=== PATIENT | male | born 1990 | race Caucasian/White ===

== ENCOUNTER → 2019-08-16 09:37 | Outpatient (CLI) | payer OTHER, SELFPAY ==
[2019-08-16 11:24] LABS: ALB/GLOB Ratio 0.9 RATIO (0.9-2.4); AST(SGOT) 27 U/L (15-37); Alanine Aminotransfer ALT/SGPT 43 U/L (16-61); Albumin, Serum 3.6 g/dL (3.2-5.0); Alkaline Phosphatase 126 U/L (45-117); Anion Gap 7 (5-15); BUN 8 mg/dL (7-18); BUN/Creat Ratio 6.9 RATIO (10-20); Chloride 107 mmol/L (98-107); Creatinine, Serum 1.16 mg/dL (0.70-1.30); EST Glomerular Filtration Rate 79 mL/min (>60); Est Glom Filt Rate - Afr Amer 96 mL/min (>60); Globulin 3.9 g/dL (2.2-4.2); Glucose 96 mg/dL (74-106); Protein, Total 7.5 g/dL (6.4-8.2); Sodium Level 138 mmol/L (136-145); Thyroid Stim Hormone (TSH) 2.42 uIU/mL (0.358-3.74)
== END ==
PROVIDERS: Referring Provider Registered Nurse; Visit Provider Registered Nurse
DX: F31.9 Bipolar disorder, unspecified (principal); Z79.899 Other long term (current) drug therapy
CPT/HCPCS: 36415; 80053; 80178; 84443

== ENCOUNTER → 2021-01-30 14:32 | Outpatient (CLI) | payer OTHER, SELFPAY ==
[2021-01-30 17:50] LABS: AST(SGOT) 50 U/L (15-37); Alanine Aminotransfer ALT/SGPT 124 U/L (16-61); Alkaline Phosphatase 127 U/L (45-117); Anion Gap 8 (5-15); BUN 5 mg/dL (7-18); BUN/Creat Ratio 3.7 RATIO (10-20); Calcium,Total 9.5 mg/dL (8.5-10.1); Chloride 108 mmol/L (98-107); Creatinine, Serum 1.34 mg/dL (0.70-1.30); EST Glomerular Filtration Rate 67 mL/min (>60); Est Glom Filt Rate - Afr Amer 81 mL/min (>60); Globulin 4.1 g/dL (2.2-4.2); Glucose 91 mg/dL (74-106); Potassium 3.4 mmol/L (3.5-5.1); Protein, Total 8.1 g/dL (6.4-8.2); Sodium Level 137 mmol/L (136-145); Thyroid Stim Hormone (TSH) 2.42 uIU/mL (0.358-3.74)
== END ==
PROVIDERS: Referring Provider Registered Nurse; Visit Provider Registered Nurse
DX: F31.9 Bipolar disorder, unspecified (principal); Z79.899 Other long term (current) drug therapy
CPT/HCPCS: 36415; 80053; 80178; 84443

== ENCOUNTER → 2021-05-03 09:57 | Outpatient (CLI) | payer OTHER, SELFPAY ==
[2021-05-03 11:32] LABS: ALB/GLOB Ratio 0.9 RATIO (0.9-2.4); AST(SGOT) 32 U/L (15-37); Alanine Aminotransfer ALT/SGPT 86 U/L (16-61); Albumin, Serum 3.7 g/dL (3.2-5.0); Alkaline Phosphatase 113 U/L (45-117); Anion Gap 7 (5-15); BUN 8 mg/dL (7-18); BUN/Creat Ratio 6.7 RATIO (10-20); Calcium,Total 8.9 mg/dL (8.5-10.1); Chloride 109 mmol/L (98-107); EST Glomerular Filtration Rate 76 mL/min (>60); Est Glom Filt Rate - Afr Amer 91 mL/min (>60); Globulin 3.9 g/dL (2.2-4.2); Glucose 96 mg/dL (74-106); Potassium 3.8 mmol/L (3.5-5.1); Protein, Total 7.6 g/dL (6.4-8.2); Sodium Level 137 mmol/L (136-145)
== END ==
PROVIDERS: PCP Nurse Practitioner; Referring Provider Registered Nurse; Visit Provider Registered Nurse
DX: F31.9 Bipolar disorder, unspecified (principal); Z79.899 Other long term (current) drug therapy
CPT/HCPCS: 36415; 80053

== ENCOUNTER 2021-08-23 09:40 | Emergency (ER) | payer MEDICAID, SELFPAY ==
[2021-08-23 09:42] VITALS: BP 138/81; PULSE 124; RESP 18; TEMP 37.1; O2SAT 93; BMI 40.6
[2021-08-23 09:46] VITALS: O2SAT 93
--- NOTE | 2021-08-23 09:56 | RAD_ITS ---
STUDY: X-RAY CHEST REASON FOR EXAM: Male, 31 years old. Cough TECHNIQUE: Single AP portable view of the chest. COMPARISON: None. FINDINGS: EKG electrodes are seen. Focal infiltrate is seen in the lateral peripheral aspect of the right upper lobe as well as in the right suprahilar and infrahilar region. Focal infiltrate is also seen in the left upper lobe. There is no demonstrated pleural abnormality. Normal size heart. Normal mediastinum and hoang. Normal visualized pulmonary arteries. Normal visualized aortic arch and descending thoracic aorta. Normal visualized thoracic spine. Normal visualized ribs, clavicles, and shoulders. There is no demonstrated abnormality of the visualized soft tissue structures of the upper abdomen. RAD/Chest 1 View (Portable) IMPRESSION: Bilateral patchy infiltrates worse in the right hemithorax. Electronically Signed: Alberto Delgadillo MD at 10:45 EST , Service support ,
[2021-08-23] MEDS: Acetaminophen 500 MG Tablet 1000 MG PO (10:14)
[2021-08-23 10:28] LABS: Absolute Lymphocyte Count 0.56 X10^3/uL (0.83-4.51); Absolute Neutrophil Count 2.3 X10^3/uL (2.0-7.7); Eosinophil# 0.01 X10^3/uL; Eosinophils% 0.3 % (0-5); Hemoglobin 13.9 g/dL (13.0-16.5); Lymphocyte # 0.56 X10^3/ul (0.83-4.51); Lymphocyte % 17.6 % (19-41); Mean Corp Hgb Conc 35.6 g/dL (32-36); Mean Corpuscular Hgb 30.5 pg (27.0-32.0); Mean Corpuscular Volume 85.5 fL (80-94); Mean Platelet Vol. 9.4 fl (6.2-12.0); Monocyte# 0.29 X10^3/uL; Monocyte% 9.1 % (0-10); NRBC Flagged by Analyzer 0 % (0-5); Neutrophil # 2.31 X10^3/uL (2.7-7.7); Neutrophil % 72.7 % (47-70); POSITIVE DIFFERENTIAL YES; Platelet Count 130 K/mm3 (150-450); RBC Distribution Width CV 13.1 % (11.6-14.6); RBC Distribution Width SD 40.7 fl (35.1-43.9); Red Blood Count 4.56 M/mm3 (4.6-6.2); White Blood Count 3.2 K/mm3 (4.4-11.0)
[2021-08-23 10:30] LABS: Differential Indicated SCAN CRITERIA MET
[2021-08-23 10:44] LABS: ALB/GLOB Ratio 0.7 RATIO (0.9-2.4); AST(SGOT) 29 U/L (15-37); Alanine Aminotransfer ALT/SGPT 35 U/L (16-61); Albumin, Serum 2.9 g/dL (3.2-5.0); Alkaline Phosphatase 78 U/L (45-117); Anion Gap 12 (5-15); BUN 9 mg/dL (7-18); BUN/Creat Ratio 8.1 RATIO (10-20); Calcium,Total 8.1 mg/dL (8.5-10.1); Chloride 103 mmol/L (98-107); Creatinine, Serum 1.11 mg/dL (0.70-1.30); EST Glomerular Filtration Rate 82 mL/min (>60); Est Glom Filt Rate - Afr Amer 100 mL/min (>60); Estimated Creatinine Clearance 87.81 ml/min; Globulin 3.9 g/dL (2.2-4.2); Glucose 113 mg/dL (74-106); Protein, Total 6.8 g/dL (6.4-8.2); Sodium Level 138 mmol/L (136-145)
[2021-08-23 10:54] LABS: Lactic Acid 1.4 mmol/L (0.4-1.9)
--- NOTE | 2021-08-23 11:22 | EDS_ITS ---
HPI History of Present Illness Chief Complaint: Shortness of Breath Informant: patient Onset/Context/Timing Onset: Days (6) Context: Gradual Onset Timing: Continuous Quality: Aching Location: Generalized Worsened by: Nothing Relieved by: Ibuprofen and Merlyn-Aspen Narrative Narrative: Patient presents with Covid symptoms for the past 6 days. Patient states he was diagnosed with COVID-19 on 08/20/2021. Patient states his symptoms have been getting progressively worse. Patient states he feels lightheaded and aching all over. Patient admits to a cough with some green and white sputum production. Patient admits to subjective fevers but denies any chills. Patient admits to some pain in his chest. Patient states his symptoms have been improving with ibuprofen and Merlyn-Aspen. Patient states nothing makes his symptoms any worse. [facility] Medical History (Updated 08/23/21 @ 11:[address] Romel Patino DO) Bipolar disorder Medical History no medical history Home Medications buspirone 10 mg PO BID 08/23/21 [History Last Taken Unknown] hydroxyzine pamoate 100 mg PO DAILY 08/23/21 [History Last Taken Unknown] lithium carbonate 600 mg PO BID 08/23/21 [History Last Taken Unknown] sertraline 50 mg PO DAILY 08/23/21 [History Last Taken Unknown] topiramate 200 mg PO DAILY 08/23/21 [History Last Taken Unknown] Allergy/AdvReac Type Severity Reaction Status Date / Time No Known Allergies Allergy Verified 08/23/21 10:15 Surgical History no surgical history no surgical history Social History Smoking Status: Current every day smoker tobacco type: cigarettes and smokeless tobacco ROS ROS ED Constitutional Constitutional ED: Reports fever(s) and subjective; Denies chills Eyes Eyes: Denies blurry vision or change in vision ENT ENT ED: Denies rhinorrhea or sore throat Cardiovascular Cardiovascular: Reports chest pain; Denies palpitations Respiratory/Chest Respiratory/Chest: Reports cough and sputum; Denies dyspnea Gastrointestinal Gastrointestinal: Reports nausea and vomiting Genitourinary Genitourinary ED: Denies dysuria or hematuria Musculoskeletal Musculoskeletal: Denies back pain or neck pain Integumentary Denies abscess or rash Neurologic Neurologic: Reports headache(s); Denies weakness Allergic/Immunologic Allergic/Immunologic ED: Denies mouth swelling or urticaria EXAM Physical Exam Const Vital Signs: 08/23/21 09:42 08/23/21 09:46 Temperature 98.7 F Temperature Source Oral Pulse Rate 124 H Respiratory Rate 18 Respiratory Effort Normal Non-Labored Respiratory Depth Normal Respiratory Pattern Normal Blood Pressure 138/81 H Blood Pressure Mean 100 Pulse Ox 93 Oxygen Delivery Method Room Air Room Air Positive well nourished, well developed and unkempt General Appearance ED: unkempt, well developed and NAD HEENT Reports moist mucous membranes Neck supple and no JVD Resp normal respiratory effort Auscultation: diminished lung sounds bilateral lower Cardio regular rate, regular rhythm and no murmurs GI normal to inspection, nondistended, normoactive bowel sounds and non-tender Palpation: soft Extremity normal to inspection General Extremety ED: Negative for edema or tenderness General Extremity: Negative for edema Neuro oriented x3, CN's II-XII intact bilaterally and no sensory deficits noted Sensorium / Orientation: alert Motor Exam: strength 5/5 throughout Psych mental status grossly normal Appearance: unkempt Skin no rashes or lesions noted MDM MDM MDM Narrative Medical decision making narrative: Portable chest x-ray was obtained. There is 1 view. On my interpretation, there are bilateral infiltrates. Bony thorax is normal. There is no cardiomegaly noted. Radiologist also interpreted the x-ray and agrees. CBC shows white blood cell count of 3.2. Platelets are 130. Comprehensive metabolic profile shows a mild hypokalemia 3.0. Patient was given a dose of oral potassium here. Lactate was normal. Patient was advised of his findings. Patient was instructed to drink plenty of fluids. Patient was instructed to follow-up with his primary care physician in 5 to 7 days. Patient understood and was agreeable with the plan. All questions were answered. Lab Data Attestation: I reviewed the patient's lab results. Labs: Laboratory Results - last 24 hr 08/23/21 08/23/21 08/23/21 10:15 10:15 10:15 WBC 3.2 L RBC 4.56 L Hgb 13.9 Hct 39.0 L MCV 85.5 MCH 30.5 MCHC 35.6 RDW Std Deviation 40.7 RDW Coeff of Joanna 13.1 Plt Count 130 L MPV 9.4 Immature Gran % (Auto) 0.300 Neut % (Auto) 72.7 H Lymph % (Auto) 17.6 L [place] % (Auto) 9.1 Eos % (Auto) 0.3 Baso % (Auto) 0.0 Absolute Neuts (auto) 2.3 Absolute Lymphs (auto) 0.56 L Nucleated RBC % 0 Sodium 138 Potassium 3.0 L Chloride 103 Carbon Dioxide 23.0 Anion Gap 12 BUN 9 Creatinine 1.11 Estim Creat Clear Calc 87.81 Est GFR (MDRD) Af Amer 100 Est GFR (MDRD) Non-Af 82 BUN/Creatinine Ratio 8.1 L Glucose 113 H Lactic Acid 1.4 Calcium 8.1 L Total Bilirubin 0.40 AST 29 ALT 35 Alkaline Phosphatase 78 Total Protein 6.8 Albumin 2.9 L Globulin 3.9 Albumin/Globulin Ratio 0.7 L Radiography Chest X-Ray - ED: 1 View, Read by ED Physician, Read by Radiologist, Right Infiltrate and Left Infiltrate Diagnostic Testing: Clinical Impression(s) from Imaging Studies Chest X-Ray 08/23/21 09:56 IMPRESSION: Bilateral patchy infiltrates worse in the right hemithorax. Electronically Signed: Alberto Delgadillo MD at 10:45 EST , Service support , Discharge Plan Triage Chief Complaint: Shortness of Breath ED Provider: Romel Patino Dx/Rx/DC Orders Clinical Impression: Pneumonia due to COVID-19 virus Instructions: Coronavirus Disease 2019 (COVID-19): Caring for Yourself or Others Prescriptions: No Action hydroxyzine pamoate 100 mg capsule 100 mg PO DAILY RF: 0 lithium carbonate 300 mg capsule 600 mg PO BID RF: 0 buspirone 10 mg tablet 10 mg PO BID RF: 0 topiramate 200 mg tablet 200 mg PO DAILY RF: 0 sertraline 50 mg tablet 50 mg PO DAILY RF: 0 Primary Care Provider: Malaika Em NP Referrals: Malaika Em AUTOMOBILE RENTAL CLERK, AUTOMOBILE RENTAL CLERK-C [Primary Care Provider] - 3-5 Days Activity Restrictions/Additional Instructions: Continue to quarantine for the next week. Disposition Disposition: Home, Self Care
[2021-08-23] MEDS: Potassium Chloride Oral Tablet 20 MEQ 40 MEQ PO (11:41)
[2021-08-23 11:48] VITALS: BP 170/89; PULSE 100; RESP 36; TEMP 37.5; O2SAT 93
[2021-08-23 12:24] VITALS: O2SAT 94
[2021-08-27 10:31] LABS: Pathologist Review Reviewed
== END 2021-08-23 12:25 | disposition home or self-care (01) ==
PROVIDERS: Emergency Provider Emergency Medicine; PCP Nurse Practitioner
DX: U07.1 COVID-19 (principal); J12.82 Pneumonia due to coronavirus disease 2019; F31.9 Bipolar disorder, unspecified; F17.210 Nicotine dependence, cigarettes, uncomplicated; E87.6 Hypokalemia; Z79.899 Other long term (current) drug therapy
CPT/HCPCS: 71045; 80053; 83605; 85025; 96360; 99285; J7040; A4216

== ENCOUNTER 2021-08-25 05:56 | Inpatient (IN) | payer MEDICAID, SELFPAY ==
[2021-08-25] VITALS (10 sets, daily range): BP systolic 119–163; BP diastolic 62–93; PULSE 89–108; RESP 16–23; TEMP 36.9–37.2; O2SAT 83–97; BMI 43.4; BMI 38.9
--- NOTE | 2021-08-25 06:06 | EKG12_ITS ---
Test Reason : SOB Blood Pressure : / mmHG Vent. Rate : 108 BPM Atrial Rate : 108 BPM P-R Int : 172 ms QRS Dur : 106 ms QT Int : 454 ms P-R-T Axes : 012 -14 018 degrees QTc Int : 608 ms Sinus tachycardia Prolonged QT Abnormal ECG Confirmed by EMANUEL MUNGUIA, WENDY ([id number]), writer editor DENISE TORRES ([id number]) on 08/27/2021 10:18:09 AM Referred By: TL Confirmed By:WENDY CASTELLANOS MD
--- NOTE | 2021-08-25 06:13 | ED.VIS.DYS ---
HPI <Dr. Keo Glasgow DO - Last Filed: 08/26/21 01:06> History of Present Illness Chief Complaint: Shortness of Breath Informant: patient Narrative Narrative: Presents by EMS worsening dyspnea over the past day. Seen in the ED 2 days ago reports Covid pneumonia. States since then symptoms worsening. Initially diagnosed 6 days ago when he went to long-term, he was released secondary to being diagnosed. States symptoms started 2 weeks ago. Fevers headache cough vomiting diarrhea. He states last smell, altered taste. Nonvaccinated. Denies sick contacts with Covid. No previous infections. Denies asthma or COPD history. Tobacco history. Denies chest or abdominal pain. EMS arrival pulse ox 81% on room air, he was brought in on 5 L of oxygen. He is not a diabetic. States feels fatigued. Symptoms worse with exertion. Reviewing records seen 2 days ago chest x-ray bilateral pneumonia consistent with Covid. Labs white count of 3 potassium of 3, lactic acid 1.4. She discharged with an inhaler. Patient did not have a documented test from 2 days ago. He states he does not have the results from the long-term. PFSH <Dr. Keo Glasgow, DO - Last Filed: 08/26/21 01:06> [facility] Medical History Anxiety and depression Bipolar disorder Home Medications buspirone 10 mg PO BID 08/23/21 [History Last Taken Unknown] hydroxyzine pamoate 100 mg PO DAILY 08/23/21 [History Last Taken Unknown] lithium carbonate 600 mg PO BID 08/23/21 [History Last Taken Unknown] sertraline 50 mg PO DAILY 08/23/21 [History Last Taken Unknown] topiramate 200 mg PO DAILY 08/23/21 [History Last Taken Unknown] Allergy/AdvReac Type Severity Reaction Status Date / Time No Known Allergies Allergy Verified 08/23/21 10:15 Family History (Updated 08/25/21 @ 15:[address] Guera Viecnte MD) Mother Mental health disorder Father Mental health disorder Social History (Updated 08/25/21 @ 15:[address] Guera Vicente MD) Smoking Status: Current every day smoker tobacco type: cigarettes and smokeless tobacco substance use type: does not use ROS <Dr. Keo Glasgow DO - Last Filed: 08/26/21 01:06> ROS ED Constitutional Constitutional ED: Reports fever(s); Denies chills or sweats Eyes Eyes: Denies change in vision ENT ENT ED: Denies dysphagia or sore throat Cardiovascular Cardiovascular: Denies chest pain, leg edema, palpitations or racing heartbeat Respiratory/Chest Respiratory/Chest: Reports cough, dyspnea and dyspnea on exertion Gastrointestinal Gastrointestinal: Reports diarrhea and vomiting; Denies abdominal pain or nausea Genitourinary Genitourinary ED: Denies dysuria, hematuria or urinary frequency Musculoskeletal Musculoskeletal: Denies back pain, extremity pain or neck pain Integumentary Denies rash or wounds Neurologic Neurologic: Reports headache(s); Denies paresthesias or weakness EXAM <Dr. Keo Glasgow, DO - Last Filed: 08/26/21 01:06> Physical Exam Const Vital Signs: 08/25/21 05:57 08/25/21 06:01 08/25/21 06:23 Temperature 98.9 F 98.9 F Temperature Source Temporal Temporal Pulse Rate 103 H 101 H Respiratory Rate 23 H 23 H Respiratory Effort Short of Breath Labored Respiratory Depth Normal Respiratory Pattern Normal Blood Pressure 123/85 H 123/85 H Blood Pressure Mean 97 97 Pulse Ox 83 97 Oxygen Delivery Method Room Air Room Air Room Air Oxygen Flow Rate (L/min) 4 08/25/21 08:25 Temperature Temperature Source Pulse Rate 108 H Respiratory Rate 21 H Respiratory Effort Respiratory Depth Respiratory Pattern Blood Pressure 150/79 H Blood Pressure Mean 102 Pulse Ox 92 Oxygen Delivery Method Nasal Cannula Oxygen Flow Rate (L/min) 4 Positive well nourished, well developed and obese Constitutional Narrative: 4 L nasal cannula at 95%. General Appearance ED: well developed and NAD Nutritional Appearance: obese HEENT Reports moist mucous membranes normocephalic and atraumatic Eyes PERRL, EOMs intact bilaterally and conjunctivae normal General Eye ED: Yes normal appearance of both eyes Neck no lymphadenopathy and supple General: Negative for tenderness Chest Wall Chest: Negative for tenderness Resp normal respiratory effort and normal air movement Effort and Inspection: symmetric chest movement; Negative for respiratory distress Cardio regular rate, regular rhythm and no murmurs Peripheral Pulses: pulses 2+ throughout GI normal to inspection, nondistended, normoactive bowel sounds and non-tender Palpation: Negative for guarding or rebound tenderness present Back/Spine no CVA tenderness and no thoracic nor lumbar tenderness Extremity normal to inspection General Extremety ED: Negative for edema or tenderness General Extremity: Negative for edema Neuro oriented x3 and no sensory deficits noted Sensorium / Orientation: awake and alert Skin no rashes or lesions noted and no wounds <Dr. Dae Ellis, DO - Last Filed: 08/25/21 09:22> Physical Exam Const Vital Signs: 08/25/21 05:57 08/25/21 06:01 08/25/21 06:23 Temperature 98.9 F 98.9 F Temperature Source Temporal Temporal Pulse Rate 103 H 101 H Respiratory Rate 23 H 23 H Respiratory Effort Short of Breath Labored Respiratory Depth Normal Respiratory Pattern Normal Blood Pressure 123/85 H 123/85 H Blood Pressure Mean 97 97 Pulse Ox 83 97 Oxygen Delivery Method Room Air Room Air Room Air Oxygen Flow Rate (L/min) 4 08/25/21 08:25 Temperature Temperature Source Pulse Rate 108 H Respiratory Rate 21 H Respiratory Effort Respiratory Depth Respiratory Pattern Blood Pressure 150/79 H Blood Pressure Mean 102 Pulse Ox 92 Oxygen Delivery Method Nasal Cannula Oxygen Flow Rate (L/min) 4 [facility] <Dr. Keo Glasgow, DO - Last Filed: 08/26/21 01:06> [facility] MDM Narrative Medical decision making narrative: Patient afebrile slight tachycardia 101 respiratory rate 23. Pulse ox on room air 83, 4 L noted 97%. Sepsis labs were ordered. Will obtain Covid testing due to no documentation in the system and no documentation from the patient. He started on dexamethasone. Reports currently 2 weeks into symptoms, he is not a candidate for antiviral treatment at this time. Will obtain a D-dimer for further evaluation likely will need CT scan to rule out PE due to hypoxia worsened over the past day. Labs troponin negative. Potassium 2.9. D-dimer elevated 0.95. Chest x-ray consistent with Covid pneumonia. Rapid Covid returned negative, will send a PCR for further evaluation. CTA chest ordered and pending. Patient signed out to oncoming physician. Reported by nursing patient did ambulate on 3 L oxygen dropped down to 86%. Lab Data Attestation: I reviewed the patient's lab results. Labs: Laboratory Results - last 24 hr 08/25/21 08/25/21 08/25/21 06:04 06:04 06:04 WBC 6.3 RBC 4.74 Hgb 13.9 Hct 41.5 MCV 87.6 MCH 29.3 MCHC 33.5 D RDW Std Deviation 42.5 RDW Coeff of Joanna 13.2 Plt Count 169 MPV 9.4 Immature Gran % (Auto) 0.800 Neut % (Auto) 78.5 H Lymph % (Auto) 16.1 L [place] % (Auto) 4.4 Eos % (Auto) 0.0 Baso % (Auto) 0.2 Absolute Neuts (auto) 5.0 Absolute Lymphs (auto) 1.02 Nucleated RBC % 0 D-Dimer Quant (PE/DVT) 0.95 H* Sodium 141 Potassium 2.9 L Chloride 104 Carbon Dioxide 30.0 Anion Gap 7 BUN 7 Creatinine 0.99 Estim Creat Clear Calc 98.46 Est GFR (MDRD) Af Amer 114 Est GFR (MDRD) Non-Af 94 BUN/Creatinine Ratio 7.1 L Glucose 105 Lactic Acid Calcium 8.1 L Magnesium Total Bilirubin 0.30 AST 27 ALT 28 Alkaline Phosphatase 74 Troponin I High Sens 4 C-React Prot Ext Range 152.00 H Total Protein 7.0 Albumin 2.9 L Globulin 4.1 Albumin/Globulin Ratio 0.7 L COVID-19 (TIFFANIE) 08/25/21 08/25/21 08/25/21 06:04 06:04 07:13 WBC RBC Hgb Hct MCV MCH MCHC RDW Std Deviation RDW Coeff of Joanna Plt Count MPV Immature Gran % (Auto) Neut % (Auto) Lymph % (Auto) [place] % (Auto) Eos % (Auto) Baso % (Auto) Absolute Neuts (auto) Absolute Lymphs (auto) Nucleated RBC % D-Dimer Quant (PE/DVT) Sodium Potassium Chloride Carbon Dioxide Anion Gap BUN Creatinine Estim Creat Clear Calc Est GFR (MDRD) Af Amer Est GFR (MDRD) Non-Af BUN/Creatinine Ratio Glucose Lactic Acid 1.8 Calcium Magnesium 2.4 Total Bilirubin AST ALT Alkaline Phosphatase Troponin I High Sens C-React Prot Ext Range Total Protein Albumin Globulin Albumin/Globulin Ratio COVID-19 (TIFFANIE) Detected Radiography Diagnostic Testing: Clinical Impression(s) from Imaging Studies Chest X-Ray 08/25/21 06:25 IMPRESSION: Ill-defined subpleural groundglass opacities are seen more prominent in the lung bases , may represent atypical pneumonia or viral pneumonia (COVID-19 ?). Electronically Signed: Analilia Dubois MD at 6:42 EST Tel , Service support , Chest CTA 08/25/21 06:51 IMPRESSION: No demonstrated pulmonary embolism or arterial dissection. Ill-defined subpleural groundglass opacities are seen more prominent in the lung bases , consistent with atypical pneumonia or viral pneumonia (COVID-19 pneumonia). Electronically Signed: Analilia Dubois MD at 7:41 EST Tel , Service support , <Dr. Dae Ellis, DO - Last Filed: 08/25/21 09:22> [facility] MDM Narrative Medical decision making narrative: Patient signed out to me at 0700 hrs. for follow-up on CTA of the chest as the patient had elevated D-dimer and presumed Covid positive H had a positive outpatient test. CT of the chest does not identify any PE or dissection. There is what appears to be Covid pneumonitis. Patient's O2 sats did drop on 3 L and he was bumped up to 4 L and is currently maintaining an O2 sat of 92%. He was previously given dexamethasone and potassium. Covid PCR is pending. Discussed with hospitalist for admission. Follow-up with a Covid PCR will be done in patient. Lab Data Labs: Laboratory Results - last 24 hr 08/25/21 08/25/21 08/25/21 06:04 06:04 06:04 WBC 6.3 RBC 4.74 Hgb 13.9 Hct 41.5 MCV 87.6 MCH 29.3 MCHC 33.5 D RDW Std Deviation 42.5 RDW Coeff of Joanna 13.2 Plt Count 169 MPV 9.4 Immature Gran % (Auto) 0.800 Neut % (Auto) 78.5 H Lymph % (Auto) 16.1 L [place] % (Auto) 4.4 Eos % (Auto) 0.0 Baso % (Auto) 0.2 Absolute Neuts (auto) 5.0 Absolute Lymphs (auto) 1.02 Nucleated RBC % 0 D-Dimer Quant (PE/DVT) 0.95 H* Sodium 141 Potassium 2.9 L Chloride 104 Carbon Dioxide 30.0 Anion Gap 7 BUN 7 Creatinine 0.99 Estim Creat Clear Calc 98.46 Est GFR (MDRD) Af Amer 114 Est GFR (MDRD) Non-Af 94 BUN/Creatinine Ratio 7.1 L Glucose 105 Lactic Acid Calcium 8.1 L Magnesium Total Bilirubin 0.30 AST 27 ALT 28 Alkaline Phosphatase 74 Troponin I High Sens 4 C-React Prot Ext Range 152.00 H Total Protein 7.0 Albumin 2.9 L Globulin 4.1 Albumin/Globulin Ratio 0.7 L COVID-19 (TIFFANIE) 08/25/21 08/25/21 08/25/21 06:04 06:04 07:13 WBC RBC Hgb Hct MCV MCH MCHC RDW Std Deviation RDW Coeff of Joanna Plt Count MPV Immature Gran % (Auto) Neut % (Auto) Lymph % (Auto) [place] % (Auto) Eos % (Auto) Baso % (Auto) Absolute Neuts (auto) Absolute Lymphs (auto) Nucleated RBC % D-Dimer Quant (PE/DVT) Sodium Potassium Chloride Carbon Dioxide Anion Gap BUN Creatinine Estim Creat Clear Calc Est GFR (MDRD) Af Amer Est GFR (MDRD) Non-Af BUN/Creatinine Ratio Glucose Lactic Acid 1.8 Calcium Magnesium 2.4 Total Bilirubin AST ALT Alkaline Phosphatase Troponin I High Sens C-React Prot Ext Range Total Protein Albumin Globulin Albumin/Globulin Ratio COVID-19 (TIFFANIE) Detected Radiography Diagnostic Testing: Clinical Impression(s) from Imaging Studies Chest X-Ray 08/25/21 06:25 IMPRESSION: Ill-defined subpleural groundglass opacities are seen more prominent in the lung bases , may represent atypical pneumonia or viral pneumonia (COVID-19 ?). Electronically Signed: Analilia Dubois MD at 6:42 EST Tel , Service support , Chest CTA 08/25/21 06:51 IMPRESSION: No demonstrated pulmonary embolism or arterial dissection. Ill-defined subpleural groundglass opacities are seen more prominent in the lung bases , consistent with atypical pneumonia or viral pneumonia (COVID-19 pneumonia). Electronically Signed: Analilia Dubois MD at 7:41 EST Tel , Service support , Discharge Plan Triage Chief Complaint: Shortness of Breath ED Provider: Keo Glasgow Dx/Rx/DC Orders Clinical Impression: Pneumonia due to COVID-19 virus, Hypoxia, Acute hypokalemia Primary Care Provider: Malaika Em CONTINUOUS WAVE OPERATOR Disposition Discharge Date/Time: 08/25/21 14:02
--- NOTE | 2021-08-25 06:25 | RAD_ITS ---
STUDY: X-RAY CHEST REASON FOR EXAM: Male, 31 years old. cough TECHNIQUE: Single AP portable view of the chest. COMPARISON: None. FINDINGS: Ill-defined subpleural groundglass opacities are seen more prominent in the lung bases , may represent atypical pneumonia or viral pneumonia (COVID-19 ?). There is no demonstrated pleural abnormality. Normal size heart. Normal mediastinum and hoang. Normal visualized pulmonary arteries. Normal visualized aortic arch and descending thoracic aorta. Normal visualized thoracic spine. Normal visualized ribs, clavicles, and shoulders. There is no demonstrated abnormality of the visualized soft tissue structures of the upper abdomen. RAD/Chest 1 View (Portable) IMPRESSION: Ill-defined subpleural groundglass opacities are seen more prominent in the lung bases , may represent atypical pneumonia or viral pneumonia (COVID-19 ?). Electronically Signed: Analilia Dubois MD at 6:42 EST Tel , Service support ,
[2021-08-25 06:30] LABS: Absolute Lymphocyte Count 1.02 X10^3/uL (0.83-4.51); Basophil# 0.01 X10^3/uL; Basophil% 0.2 % (0-1); Hematocrit 41.5 % (40-54); Hemoglobin 13.9 g/dL (13.0-16.5); Lymphocyte # 1.02 X10^3/ul (0.83-4.51); Lymphocyte % 16.1 % (19-41); Mean Corp Hgb Conc 33.5 g/dL (32-36); Mean Corpuscular Hgb 29.3 pg (27.0-32.0); Mean Corpuscular Volume 87.6 fL (80-94); Mean Platelet Vol. 9.4 fl (6.2-12.0); Monocyte# 0.28 X10^3/uL; Monocyte% 4.4 % (0-10); NRBC Flagged by Analyzer 0 % (0-5); Neutrophil # 4.96 X10^3/uL (2.7-7.7); Neutrophil % 78.5 % (47-70); Platelet Count 169 K/mm3 (150-450); RBC Distribution Width CV 13.2 % (11.6-14.6); RBC Distribution Width SD 42.5 fl (35.1-43.9); Red Blood Count 4.74 M/mm3 (4.6-6.2); White Blood Count 6.3 K/mm3 (4.4-11.0)
--- NOTE | 2021-08-25 06:37 | ED.RN ---
Patient 96% 2L NC at rest. Patient unable to walk more than 8 steps without losing his breath and began to sway, before sitting down. Increased O2 from 2Lto 3 L NC and still dropped to 86%. Took him more than 3 minutes to recover on 3L NC and went to 96% on 3L. O2 decreased to 2 L NC for resting pulse ox at 95% at this time.
--- NOTE | 2021-08-25 06:42 | NURSING ---
NO OLD EKGS
[2021-08-25 06:47] LABS: ALB/GLOB Ratio 0.7 RATIO (0.9-2.4); AST(SGOT) 27 U/L (15-37); Alanine Aminotransfer ALT/SGPT 28 U/L (16-61); Albumin, Serum 2.9 g/dL (3.2-5.0); Alkaline Phosphatase 74 U/L (45-117); Anion Gap 7 (5-15); BUN 7 mg/dL (7-18); BUN/Creat Ratio 7.1 RATIO (10-20); Calcium,Total 8.1 mg/dL (8.5-10.1); Chloride 104 mmol/L (98-107); Creatinine, Serum 0.99 mg/dL (0.70-1.30); EST Glomerular Filtration Rate 94 mL/min (>60); Est Glom Filt Rate - Afr Amer 114 mL/min (>60); Estimated Creatinine Clearance 98.46 ml/min; Globulin 4.1 g/dL (2.2-4.2); Glucose 105 mg/dL (74-106); Potassium 2.9 mmol/L (3.5-5.1); Sodium Level 141 mmol/L (136-145); Troponin-I HS 4 pg/mL (3.0-78.0)
[2021-08-25 06:48] LABS: D-Dimer Quantitative (DVT/PE) 0.95 FEU/ug/m (0.27-0.49)
[2021-08-25 06:51] LABS: Lactic Acid 1.8 mmol/L (0.4-1.9)
--- NOTE | 2021-08-25 06:51 | CT_ITS ---
STUDY: CTA CHEST REASON FOR EXAM: Male, 31 years old. hypoxia -- covid, pneumonia RADIATION DOSAGE (If Supplied By Facility): CTDIvol = ( 15.04 ) mGy, DLP = ( 484.45 ) mGycm TECHNIQUE: The examination was performed with the intravenous administration of IV 100mL Isovue-370. Post-processing of the angiographic images was performed, with multiplanar reformation and 3D reconstruction. Individualized dose optimization techniques were used for this CT. COMPARISON: None. FINDINGS: Normal enhancement of the main pulmonary artery and right and left pulmonary arteries. Normal enhancement of the bilateral peripheral pulmonary arteries. There is no demonstrated pulmonary embolism. Normal thoracic aorta and visualized great vessels. There is no demonstrated aortic dissection. Normal heart and pericardium. Normal mediastinum. Normal hilar regions. Normal visualized trachea and bronchi. The lungs are well expanded. Ill-defined subpleural groundglass opacities are seen more prominent in the lung bases , consistent with atypical pneumonia or viral pneumonia (COVID-19 pneumonia). Normal pleura. Normal chest wall structures. Normal osseous structures. Normal visualized upper abdomen. CT/CTA Chest W/WO Contrast IMPRESSION: No demonstrated pulmonary embolism or arterial dissection. Ill-defined subpleural groundglass opacities are seen more prominent in the lung bases , consistent with atypical pneumonia or viral pneumonia (COVID-19 pneumonia). Electronically Signed: Analilia Dubois MD at 7:41 EST Tel , Service support ,
[2021-08-25] MEDS: Potassium Chloride Oral Tablet 20 MEQ 40 MEQ PO ×2 (06:59→16:40)
--- NOTE | 2021-08-25 09:12 | NURSING ---
DR CLAIRE INFANTE
--- NOTE | 2021-08-25 09:21 | PCM.HP.STD ---
HPI - General General Date of Admission: 08/25/21 Date of Service: 08/25/21 Chief Complaint: Shortness of breath ongoing for 1 week HPI Narrative EDWARD SILVEIRA, is a 31 M who presents with the above. Patient was supposed to going to long term and was tested positive for Covid and hence did not go to long term. He stated that he is on probation. He has been progressively short of breath. He is unvaccinated. Denies any fever or chills. Admits to loss of smell or taste. Denied any diarrhea. Vitals in the ED were stable except patient was satting 83% on room air. He improved to 93% on 4 L of oxygen. His blood work for significant for elevated D-dimer. Potassium of 2.9 by magnesium is 2.4. Chest x-ray and CT of the chest showed bilateral infiltrates. No PE [facility] Medical History (Updated 08/25/21 @ 15:[address] Guera Vicente MD) Anxiety and depression Bipolar disorder Home Medications buspirone 10 mg PO BID 08/23/21 [History Last Taken Unknown] hydroxyzine pamoate 100 mg PO DAILY 08/23/21 [History Last Taken Unknown] lithium carbonate 600 mg PO BID 08/23/21 [History Last Taken Unknown] sertraline 50 mg PO DAILY 08/23/21 [History Last Taken Unknown] topiramate 200 mg PO DAILY 08/23/21 [History Last Taken Unknown] Allergy/AdvReac Type Severity Reaction Status Date / Time No Known Allergies Allergy Verified 08/23/21 10:15 Family History (Updated 08/25/21 @ 15:[address] Guera Vicente MD) Mother Mental health disorder Father Mental health disorder Surgical History no surgical history no surgical history Social History (Updated 08/25/21 @ 15:[address] Guera Vicente MD) Smoking Status: Current every day smoker tobacco type: cigarettes and smokeless tobacco substance use type: does not use ROS ROS Narrative Constitutional: Reports: Malaise, Weakness, Fatigue. Denies: Anorexia, Chills, Fever, Night Sweats, Weight Change Eyes: Denies: Blurred vision, Cataracts, Conjunctivae Inflammation, Pain, Redness, Vision Change HEENT: Denies: Difficulty Hearing, Difficulty Swallowing, Head Aches, Hearing Changes, Sinus Congestion, Sinus Drainage Cardiovascular: Denies: Chest Pain, Orthopnea, Palpitations Respiratory: Admits to Cough, Shortness of breath at rest, Sputum production Gastrointestinal: Denies: Abdominal Pain, Nausea, Vomiting Genitourinary: Denies: Dysuria Musculoskeletal: Denies: Joint Pain, Joint stiffness, Joint swelling, Joint Tenderness Skin: Denies: Rash, Wounds Neurological: Denies: Numbness, Tingling, Focal weakness Vital Signs Vital Signs Vital Signs: 08/25/21 05:57 08/25/21 06:01 08/25/21 06:23 Temperature 98.9 F 98.9 F Temperature Source Temporal Temporal Pulse Rate 103 H 101 H Respiratory Rate 23 H 23 H Respiratory Effort Short of Breath Labored Respiratory Depth Normal Respiratory Pattern Normal Blood Pressure 123/85 H 123/85 H Blood Pressure Mean 97 97 Pulse Ox 83 97 Oxygen Delivery Method Room Air Room Air Room Air Oxygen Flow Rate (L/min) 4 08/25/21 08:25 Temperature Temperature Source Pulse Rate 108 H Respiratory Rate 21 H Respiratory Effort Respiratory Depth Respiratory Pattern Blood Pressure 150/79 H Blood Pressure Mean 102 Pulse Ox 92 Oxygen Delivery Method Nasal Cannula Oxygen Flow Rate (L/min) 4 Weight Weight: 122.3 kg Body Mass Index (BMI) 43.4 Results Lab / Micro Data Result Diagrams: 08/25/21 06:04 08/25/21 06:04 Labs: Laboratory Results - last 24 hr 08/25/21 06:04: WBC 6.3, RBC 4.74, Hgb 13.9, Hct 41.5, MCV 87.6, MCH 29.3, MCHC 33.5 D, RDW Std Deviation 42.5, RDW Coeff of Joanna 13.2, Plt Count 169, MPV 9.4, Immature Gran % (Auto) 0.800, Neut % (Auto) 78.5 H, Lymph % (Auto) 16.1 L, [place] % (Auto) 4.4, Eos % (Auto) 0.0, Baso % (Auto) 0.2, Absolute Neuts (auto) 5.0, Absolute Lymphs (auto) 1.02, Nucleated RBC % 0 08/25/21 06:04: D-Dimer Quant (PE/DVT) 0.95 H* 08/25/21 06:04: Sodium 141, Potassium 2.9 L, Chloride 104, Carbon Dioxide 30.0, Anion Gap 7, BUN 7, Creatinine 0.99, Estim Creat Clear Calc 98.46, Est GFR (MDRD) Af Amer 114, Est GFR (MDRD) Non-Af 94, BUN/Creatinine Ratio 7.1 L, Glucose 105, Calcium 8.1 L, Total Bilirubin 0.30, AST 27, ALT 28, Alkaline Phosphatase 74, Troponin I High Sens 4, C-React Prot Ext Range 152.00 H, Total Protein 7.0, Albumin 2.9 L, Globulin 4.1, Albumin/Globulin Ratio 0.7 L 08/25/21 06:04: Lactic Acid 1.8 Micro: Microbiology 08/25/21 06:12 Nasal Secretion SARS-CoV-2 Antigen (Rapid) - Final Radiology Impression Chest X-Ray 08/25/21 06:25 IMPRESSION: Ill-defined subpleural groundglass opacities are seen more prominent in the lung bases , may represent atypical pneumonia or viral pneumonia (COVID-19 ?). Electronically Signed: Analilia Dubois MD at 6:42 EST Tel , Service support , Chest CTA 08/25/21 06:51 IMPRESSION: No demonstrated pulmonary embolism or arterial dissection. Ill-defined subpleural groundglass opacities are seen more prominent in the lung bases , consistent with atypical pneumonia or viral pneumonia (COVID-19 pneumonia). Electronically Signed: Analilia Dubois MD at 7:41 EST Tel , Service support , Assessment & Plan Assessment/Plan (1) Acute respiratory failure with hypoxia: (2) Pneumonia due to COVID-19 virus: (3) Acute hypokalemia: PLAN: 1. Acute hypoxic respiratory failure secondary to acute COVID-19 pneumonia Patient is on 3 to 4 L of oxygen Patient is unvaccinated; symptoms started about a week ago Chest x-ray and CT of the chest shows bilateral infiltrates, no PE Would continue on dexamethasone, start remdesivir Encourage use of incentive spirometer 2. Hypokalemia, replaced, recheck in a.m. 3. Obesity, BMI 38.9 4. Bipolar disorder/anxiety/depression, continue chronic medications Charges/Coding Visit Charges Inpatient E&M: 83241 Subs Hosp L2
--- NOTE | 2021-08-25 09:22 | NURSING ---
MED SURG [facility], RESPITATORY FAILURE
[2021-08-25 09:37] LABS: Magnesium 2.4 mg/dL (1.6-2.6)
[2021-08-25] MEDS: Sertraline 50 MG Tablet PO (15:01)
[2021-08-25] MEDS: Topiramate 200 MG Tablet PO (15:01)
[2021-08-25] MEDS: Lithium Carbonate 300mg Capsule 600 MG PO ×2 (15:01→22:52)
[2021-08-25] MEDS: guaiFENesin 10 ML UDC (200MG/10ML) 20 ML PO ×2 (16:40→22:51)
[2021-08-25] MEDS: Acetaminophen 325 MG Tablet 650 MG PO (22:51)
[2021-08-25] MEDS: busPIRone 5 MG Tablet 10 MG PO (22:51)
[2021-08-26] VITALS (12 sets, daily range): BP systolic 115–142; BP diastolic 74–92; PULSE 71–100; RESP 18–20; TEMP 36.7–37.2; O2SAT 92–95
[2021-08-26 06:41] LABS: Hematocrit 41.2 % (40-54); Hemoglobin 13.8 g/dL (13.0-16.5); Mean Corp Hgb Conc 33.5 g/dL (32-36); Mean Corpuscular Hgb 30.2 pg (27.0-32.0); Mean Corpuscular Volume 90.2 fL (80-94); Mean Platelet Vol. 9.2 fl (6.2-12.0); Platelet Count 190 K/mm3 (150-450); RBC Distribution Width CV 13.7 % (11.6-14.6); RBC Distribution Width SD 45.6 fl (35.1-43.9); Red Blood Count 4.57 M/mm3 (4.6-6.2); White Blood Count 6.3 K/mm3 (4.4-11.0)
[2021-08-26 07:18] LABS: ALB/GLOB Ratio 0.7 RATIO (0.9-2.4); AST(SGOT) 49 U/L (15-37); Alanine Aminotransfer ALT/SGPT 37 U/L (16-61); Albumin, Serum 2.8 g/dL (3.2-5.0); Alkaline Phosphatase 75 U/L (45-117); Anion Gap 8 (5-15); BUN 10 mg/dL (7-18); Chloride 114 mmol/L (98-107); Creatinine, Serum 0.91 mg/dL (0.70-1.30); EST Glomerular Filtration Rate 104 mL/min (>60); Est Glom Filt Rate - Afr Amer 126 mL/min (>60); Estimated Creatinine Clearance 107.11 ml/min; Glucose 100 mg/dL (74-106); Potassium 4.2 mmol/L (3.5-5.1); Protein, Total 6.8 g/dL (6.4-8.2); Sodium Level 145 mmol/L (136-145)
[2021-08-26] MEDS: hydrOXYzine PAM 25 MG Capsule 100 MG PO (09:08)
[2021-08-26] MEDS: Enoxaparin 30 MG/0.3 ML Syringe SC ×2 (09:08→21:29)
[2021-08-26] MEDS: Topiramate 200 MG Tablet PO (09:09)
[2021-08-26] MEDS: busPIRone 5 MG Tablet 10 MG PO ×2 (09:09→21:29)
[2021-08-26] MEDS: Potassium Chloride Oral Tablet 20 MEQ 40 MEQ PO ×2 (09:10→17:01)
[2021-08-26] MEDS: Sertraline 50 MG Tablet PO (09:10)
[2021-08-26] MEDS: Acetaminophen 325 MG Tablet 650 MG PO ×2 (09:10→21:29)
[2021-08-26] MEDS: dexAMETHasone 4 MG Tablet 6 MG PO (09:10)
[2021-08-26] MEDS: Lithium Carbonate 300mg Capsule 600 MG PO ×2 (09:10→21:29)
--- NOTE | 2021-08-26 11:50 | PCM.PN.HOSP ---
Subjective Subjective Follow-up on acute hypoxic respiratory failure secondary to COVID-19 pneumonia: Patient was seen and examined. He is currently on 7 L of oxygen Objective Data Objective Data Vital Signs: Vital Signs Temp Pulse Resp BP Pulse Ox 98.9 F 100 20 H 142/88 H 93 08/26/21 09:15 08/26/21 09:15 08/26/21 11:00 08/26/21 09:15 08/26/21 10:12 Oxygen Flow Rate (L/min) 8 Oxygen Delivery Method High Flow Weight: 109.3 kg Body Mass Index (BMI) 38.9 Intake & Output: Intake and Output for Last 24 Hours 08/24/21 08/25/21 08/26/21 23:59 23:59 23:59 Intake Total 2150 / 2150 Output Total 750 / 750 Balance 1400 / 1400 Lab / Micro Data Result Diagrams: 08/26/21 06:10 08/26/21 06:10 Labs: Laboratory Results - last 24 hr 08/26/21 06:10: WBC 6.3, RBC 4.57 L, Hgb 13.8, Hct 41.2, MCV 90.2, MCH 30.2, MCHC 33.5, RDW Std Deviation 45.6 H, RDW Coeff of Joanna 13.7, Plt Count 190, MPV 9.2 08/26/21 06:10: Sodium 145, Potassium 4.2, Chloride 114 H, Carbon Dioxide 23.0, Anion Gap 8, BUN 10, Creatinine 0.91, Estim Creat Clear Calc 107.11, Est GFR (MDRD) Af Amer 126, Est GFR (MDRD) Non-Af 104, BUN/Creatinine Ratio 11.0, Glucose 100, Calcium 9.0, Total Bilirubin 0.40, AST 49 H, ALT 37, Alkaline Phosphatase 75, Total Protein 6.8, Albumin 2.8 L, Globulin 4.0, Albumin/Globulin Ratio 0.7 L Micro: Microbiology 08/25/21 17:10 Urine, Clean Catch Streptococcus pneumoniae Antigen (M - Final 08/25/21 17:10 Urine, Clean Catch Legionella Antigen - Final 08/25/21 15:05 Mucosa - Nasopharyngeal Respiratory Panel (PCR) - Final 08/25/21 06:12 Nasal Secretion SARS-CoV-2 Antigen (Rapid) - Final Physical Exam Narrative Physical exam: General: Alert, Oriented x3, Cooperative, No apparent distress, Well developed, obese HEENT: Atraumatic Oral: Moist Mucosa Neck: Supple Lungs: Diminished to auscultation Cardiovascular: HS I+II, regular, no murmurs Abdomen: Bowel Sounds Present, Soft, Non Tender Extremities: No edema Assessment & Plan Assessment/Plan (1) Acute respiratory failure with hypoxia: (2) Pneumonia due to COVID-19 virus: (3) Acute hypokalemia: PLAN: Summary: 31-year-old male unvaccinated, who comes in with a week of progressive shortness of breath and upper respiratory symptoms and has been diagnosed with Covid. 1. Acute hypoxic respiratory failure secondary to acute COVID-19 pneumonia, worsening Currently on 7 L of oxygen Patient is unvaccinated; symptoms started about a week Prior to admission Chest x-ray and CT of the chest shows bilateral infiltrates, no PE Would continue on dexamethasone and Remdesivir Encourage use of incentive spirometer 2. Hypokalemia, replaced 3. Obesity, BMI 38.9, Lifestyle modification recommended 4. Bipolar disorder/anxiety/depression, continue chronic medications 5. DVT PPx -Lovenox twice daily Charges/Coding Visit Charges Inpatient E&M: 32305 Subs Hosp L2
[2021-08-26] MEDS: Furosemide 40 MG/4 ML Vial IV (11:59)
--- NOTE | 2021-08-26 19:22 | PCS.PANDOC ---
PANDEMIC DOCUMENTATION INITIATED: Date: 04/30/2021 Time: 190
[2021-08-26] MEDS: guaiFENesin 10 ML UDC (200MG/10ML) 20 ML PO (21:29)
[2021-08-27] VITALS (8 sets, daily range): BP systolic 119–131; BP diastolic 74–85; PULSE 62–85; RESP 16–24; TEMP 36.1–36.7; O2SAT 92–100
[2021-08-27] MEDS: MELATONIN 10 MG TABLET 5 MG PO (00:22)
[2021-08-27 05:40] LABS: Absolute Lymphocyte Count 0.94 X10^3/uL (0.83-4.51); Absolute Neutrophil Count 4.8 X10^3/uL (2.0-7.7); Hematocrit 41.8 % (40-54); Hemoglobin 13.9 g/dL (13.0-16.5); Lymphocyte # 0.94 X10^3/ul (0.83-4.51); Lymphocyte % 14.6 % (19-41); Mean Corp Hgb Conc 33.3 g/dL (32-36); Mean Corpuscular Hgb 29.8 pg (27.0-32.0); Mean Corpuscular Volume 89.5 fL (80-94); Mean Platelet Vol. 9.2 fl (6.2-12.0); Monocyte# 0.59 X10^3/uL; Monocyte% 9.2 % (0-10); NRBC Flagged by Analyzer 0 % (0-5); Neutrophil # 4.77 X10^3/uL (2.7-7.7); Neutrophil % 74.3 % (47-70); POSITIVE MORPHOLOGY YES; Platelet Count 238 K/mm3 (150-450); RBC Distribution Width CV 13.5 % (11.6-14.6); RBC Distribution Width SD 44.7 fl (35.1-43.9); Red Blood Count 4.67 M/mm3 (4.6-6.2); White Blood Count 6.4 K/mm3 (4.4-11.0)
[2021-08-27 06:06] LABS: ALB/GLOB Ratio 0.6 RATIO (0.9-2.4); AST(SGOT) 30 U/L (15-37); Alanine Aminotransfer ALT/SGPT 37 U/L (16-61); Albumin, Serum 2.7 g/dL (3.2-5.0); Alkaline Phosphatase 70 U/L (45-117); Anion Gap 6 (5-15); BUN 15 mg/dL (7-18); BUN/Creat Ratio 16.9 RATIO (10-20); Calcium,Total 8.8 mg/dL (8.5-10.1); Chloride 113 mmol/L (98-107); Creatinine, Serum 0.89 mg/dL (0.70-1.30); EST Glomerular Filtration Rate 106 mL/min (>60); Est Glom Filt Rate - Afr Amer 129 mL/min (>60); Estimated Creatinine Clearance 109.52 ml/min; Globulin 4.2 g/dL (2.2-4.2); Glucose 104 mg/dL (74-106); Potassium 4.3 mmol/L (3.5-5.1); Protein, Total 6.9 g/dL (6.4-8.2); Sodium Level 140 mmol/L (136-145)
[2021-08-27 07:17] LABS: Differential Indicated SCAN CRITERIA MET
[2021-08-27] MEDS: 0.9% Saline Lock 10 ML Syringe IV (10:18)
[2021-08-27] MEDS: Potassium Chloride Oral Tablet 20 MEQ 40 MEQ PO ×2 (10:24→18:33)
[2021-08-27] MEDS: Enoxaparin 30 MG/0.3 ML Syringe SC ×2 (10:25→21:14)
[2021-08-27] MEDS: hydrOXYzine PAM 25 MG Capsule 100 MG PO (10:25)
[2021-08-27] MEDS: Lithium Carbonate 300mg Capsule 600 MG PO ×2 (10:26→21:14)
[2021-08-27] MEDS: dexAMETHasone 4 MG Tablet 6 MG PO (10:26)
[2021-08-27] MEDS: Topiramate 200 MG Tablet PO (10:27)
[2021-08-27] MEDS: busPIRone 5 MG Tablet 10 MG PO ×2 (10:27→21:14)
[2021-08-27] MEDS: Sertraline 50 MG Tablet PO (10:27)
[2021-08-27] MEDS: Acetaminophen 325 MG Tablet 650 MG PO ×2 (10:35→18:32)
--- NOTE | 2021-08-27 11:43 | NURSING ---
This Nurse spent time educating pt the importance of using Incentive Spirometer and sitting in chair/laying prone in bed and moving. Pt voiced that he was scared he was going to stop breathing if he moved around b/c it makes him more SOB. Education given regarding this. PEP was given by this nurse and once again edcouraged to use.
--- NOTE | 2021-08-27 12:18 | CASEMGMT ---
CEE ST Assessment: Face to Face with pt for initial transition planning/care coordination assessment. CEE ST introduced self and role at [facility], pt voices understanding and consents to assessment. Pt is A/O x4 and answers all questions appropriately at this time. Pt lying in bed with O2 on in no distress. Care providers, pharmacy, and demographics verified/updated. Admitting Dx: acute hypoxic respiratory failure/acute COVID 19 PCP:Malaika Em, STRIP MACHINE OPERATOR Specialists:Harsh psychiatrist Preferred Pharmacy: [facility] Insurance: [facility] Community Plan Prescription Benefit: yes LW/HPOA: Pt denies having a LW/DPOA and denies need for info regarding AD. LNOK: Benito Gallego, friend Living Arrangements: Pt lives alone in a ground level apt with 3 steps to enter. Pt states he is I in ADL's and denies concerns at home. Transportation: Pt has transportation through his insurance. DME/HHC/SNF: Pt denies having any DME in the home, prior HHC or SNF stays. Pt states he was first tested for COVID at the [facility]. He states he is to serve 15 days there but was sent home when found to be COVID positive. Pt is to call back on Sep 09 to see about serving his time. Discussed local in network DME companies should pt need home O2, pt denies preference. Pt states he does have a friend he could ask to provide him with groceries and supplies while he is in quarantine. Will provide pt with phone number to [employer] should he need for groceries. He verbalizes that this is also an option. Pt states no concerns with going home at time of dc. Pt states no further concerns/needs. CM to follow. Advised pt to ask CM if any further question/concerns/needs arise, voices understanding. Pt Goal: Home Plan: Home
--- NOTE | 2021-08-27 12:37 | PN.HOSP_ITS ---
Subjective Subjective Patient seen and examined. He looked uncomfortable and said he was coughing incessantly. He still feels short of breath and does not think it is improving. He is now on 6 L of oxygen. Review of systems otherwise negative. Objective Data Objective Data Vital Signs: Vital Signs Temp Pulse Resp BP Pulse Ox 97.7 F L 85 24 H 131/85 H 96 08/27/21 09:50 08/27/21 09:50 08/27/21 09:50 08/27/21 09:50 08/27/21 09:50 Oxygen Flow Rate (L/min) 6 Oxygen Delivery Method Nasal Cannula Weight: 240 lb 15.444 oz Body Mass Index (BMI) 38.9 Intake & Output: Intake and Output for Last 24 Hours 08/25/21 08/26/21 08/27/21 23:59 23:59 23:59 Intake Total 2150 / 2150 1800 / 1800 Output Total 750 / 750 3130 / 3130 400 / 400 Balance 1400 / 1400 -1330 / -1330 -400 / -400 Lab / Micro Data Result Diagrams: 08/27/21 05:20 08/27/21 05:20 Labs: Laboratory Results - last 24 hr 08/27/21 05:20: WBC 6.4, RBC 4.67, Hgb 13.9, Hct 41.8, MCV 89.5, MCH 29.8, MCHC 33.3, RDW Std Deviation 44.7 H, RDW Coeff of Joanna 13.5, Plt Count 238, MPV 9.2, Immature Gran % (Auto) 1.900 H, Neut % (Auto) 74.3 H, Lymph % (Auto) 14.6 L, [place] % (Auto) 9.2, Eos % (Auto) 0.0, Baso % (Auto) 0.0, Absolute Neuts (auto) 4.8, Absolute Lymphs (auto) 0.94, Nucleated RBC % 0 08/27/21 05:20: Sodium 140, Potassium 4.3, Chloride 113 H, Carbon Dioxide 21.0, Anion Gap 6, BUN 15, Creatinine 0.89, Estim Creat Clear Calc 109.52, Est GFR (MDRD) Af Amer 129, Est GFR (MDRD) Non-Af 106, BUN/Creatinine Ratio 16.9, Glucose 104, Calcium 8.8, Total Bilirubin 0.30, AST 30, ALT 37, Alkaline Phosphatase 70, Total Protein 6.9, Albumin 2.7 L, Globulin 4.2, Albumin/Globulin Ratio 0.6 L Micro: Microbiology 08/25/21 17:10 Urine, Clean Catch Streptococcus pneumoniae Antigen (M - Final 08/25/21 17:10 Urine, Clean Catch Legionella Antigen - Final 08/25/21 15:05 Mucosa - Nasopharyngeal Respiratory Panel (PCR) - Final 08/25/21 06:12 Nasal Secretion SARS-CoV-2 Antigen (Rapid) - Final Physical Exam Const alert and oriented x3 Orientation / Consciousness: lethargic Exam Limitations: no limitations HEENT head/scalp atraumatic Head and Scalp: normocephalic Mouth: dry mucous membranes Eyes PERRL, EOMs intact bilaterally and conjunctivae normal Neck no lymphadenopathy Resp Resp Narrative: Markedly diminished breath sounds bibasilarly. No wheezes or crackles. On 6 L of oxygen. Cardio regular rate, regular rhythm, S1 normal heart sound, S2 normal heart sound and no murmurs GI normal to inspection, nondistended, normoactive bowel sounds, soft to palpation, non-tender and non-distended Extremity normal to inspection, full ROM and no clubbing, cyanosis or edema Peripheral Pulses: Yes pulses 2+ throughout Skin no rashes or lesions noted Neuro oriented x3, CN's II-XII intact bilaterally and moves all extremities Sensorium / Orientation: awake and alert Psych Mood & Affect: anxious Assessment & Plan Assessment/Plan (1) Acute respiratory failure with hypoxia: (2) Pneumonia due to COVID-19 virus: PLAN: #Acute hypoxic respiratory failure due to covid 19 pneumonia * still feels very short of breath. On 6L of oxygen by nasal canula * Titrate oxygen to maintain saturation above 90%. Breathing treatments bronchodilators. * Add on guaifenesin with codeine for severe cough * On Decadron and remdesivir #Hypokalemia: Resolved #History of bipolar disorder: On lithium #Depression: On buspirone DVT prophylaxis: Lovenox Charges/Coding Visit Charges Inpatient E&M: 33790 Subs Hosp L3
[2021-08-27] MEDS: guaiFENesin/Codeine 5 ML UDC 10 ML PO (14:12)
--- NOTE | 2021-08-27 14:24 | NURSING ---
Pt has not been oob yet today. this nurse assisted pt in sitting on edge of bed, waited until he recovered with his oxygen and then assisted into chair. Spo2 95% on 6L NC. Pt was very hesitant to get in chair or move. This nurse encouraged pt. Persistent coughing noted. SKIN WASHER dry cough.
[2021-08-28] VITALS (12 sets, daily range): BP systolic 120–124; BP diastolic 73–80; PULSE 58–94; RESP 16–20; TEMP 35.8–37.1; O2SAT 4–100
[2021-08-28 07:14] LABS: Absolute Lymphocyte Count 1.02 X10^3/uL (0.83-4.51); Absolute Neutrophil Count 4.4 X10^3/uL (2.0-7.7); Basophil# 0.01 X10^3/uL; Basophil% 0.2 % (0-1); Eosinophil# 0.01 X10^3/uL; Eosinophils% 0.2 % (0-5); Hematocrit 44.1 % (40-54); Hemoglobin 14.3 g/dL (13.0-16.5); Lymphocyte # 1.02 X10^3/ul (0.83-4.51); Lymphocyte % 16.8 % (19-41); Mean Corp Hgb Conc 32.4 g/dL (32-36); Mean Corpuscular Volume 92.5 fL (80-94); Mean Platelet Vol. 9.7 fl (6.2-12.0); Monocyte% 9.9 % (0-10); NRBC Flagged by Analyzer 0 % (0-5); Neutrophil # 4.36 X10^3/uL (2.7-7.7); Neutrophil % 71.6 % (47-70); POSITIVE MORPHOLOGY YES; Platelet Count 256 K/mm3 (150-450); RBC Distribution Width CV 13.2 % (11.6-14.6); RBC Distribution Width SD 45.3 fl (35.1-43.9); Red Blood Count 4.77 M/mm3 (4.6-6.2); White Blood Count 6.1 K/mm3 (4.4-11.0)
[2021-08-28 07:23] LABS: Differential Indicated SCAN CRITERIA MET
[2021-08-28 08:16] LABS: Reactive Lymphocyte RARE
--- NOTE | 2021-08-28 08:28 | PCS.PANDOC ---
PANDEMIC DOCUMENTATION INITIATED: Date: 04/30/2021 Time: 1900 emergency team nursing see assignment sheet
[2021-08-28] MEDS: Potassium Chloride Oral Tablet 20 MEQ 40 MEQ PO ×2 (08:36→17:44)
[2021-08-28] MEDS: Sertraline 50 MG Tablet PO (08:36)
[2021-08-28] MEDS: hydrOXYzine PAM 25 MG Capsule 100 MG PO (08:37)
[2021-08-28] MEDS: Lithium Carbonate 300mg Capsule 600 MG PO ×2 (08:37→20:57)
[2021-08-28] MEDS: busPIRone 5 MG Tablet 10 MG PO ×2 (08:37→20:57)
[2021-08-28] MEDS: dexAMETHasone 4 MG Tablet 6 MG PO (08:38)
[2021-08-28] MEDS: Enoxaparin 30 MG/0.3 ML Syringe SC ×2 (08:38→20:58)
[2021-08-28] MEDS: Topiramate 200 MG Tablet PO (08:38)
[2021-08-28] MEDS: Acetaminophen 325 MG Tablet 650 MG PO (08:49)
--- NOTE | 2021-08-28 08:51 | NURSING ---
declines to be/get oob or prone.
[2021-08-28] MEDS: 0.9% Saline Lock 10 ML Syringe IV (10:43)
[2021-08-28 11:00] LABS: ALB/GLOB Ratio 0.6 RATIO (0.9-2.4); AST(SGOT) 21 U/L (15-37); Alanine Aminotransfer ALT/SGPT 32 U/L (16-61); Albumin, Serum 2.5 g/dL (3.2-5.0); Alkaline Phosphatase 88 U/L (45-117); Anion Gap 2 (5-15); BUN 12 mg/dL (7-18); BUN/Creat Ratio 12.6 RATIO (10-20); Calcium,Total 9.2 mg/dL (8.5-10.1); Chloride 112 mmol/L (98-107); Creatinine, Serum 0.95 mg/dL (0.70-1.30); EST Glomerular Filtration Rate 99 mL/min (>60); Est Glom Filt Rate - Afr Amer 119 mL/min (>60); Globulin 4.1 g/dL (2.2-4.2); Glucose 99 mg/dL (74-106); Potassium 4.8 mmol/L (3.5-5.1); Protein, Total 6.6 g/dL (6.4-8.2); Sodium Level 140 mmol/L (136-145)
--- NOTE | 2021-08-28 11:28 | PN.HOSP_ITS ---
Subjective Subjective Patient seen and examined. He feels tired. He is on 6 L of oxygen today though he was down to 3 L earlier today. Review of systems otherwise negative. Objective Data Objective Data Vital Signs: Vital Signs Temp Pulse Resp BP Pulse Ox 98.1 F 68 16 124/80 H 4 08/28/21 08:03 08/28/21 08:03 08/28/21 08:03 08/28/21 08:03 08/28/21 09:06 Oxygen Flow Rate (L/min) 6 Oxygen Delivery Method High Flow Weight: 240 lb 15.444 oz Body Mass Index (BMI) 38.9 Intake & Output: Intake and Output for Last 24 Hours 08/26/21 08/27/21 08/28/21 23:59 23:59 23:59 Intake Total 1800 / 1800 790 / 790 600 / 600 Output Total 3130 / 3130 950 / 950 450 / 450 Balance -1330 / -1330 -160 / -160 150 / 150 Lab / Micro Data Result Diagrams: 08/28/21 06:06 08/28/21 10:10 Labs: Laboratory Results - last 24 hr 08/28/21 06:06: WBC 6.1, RBC 4.77, Hgb 14.3, Hct 44.1, MCV 92.5, MCH 30.0, MCHC 32.4, RDW Std Deviation 45.3 H, RDW Coeff of Joanna 13.2, Plt Count 256, MPV 9.7, Immature Gran % (Auto) 1.300 H, Neut % (Auto) 71.6 H, Lymph % (Auto) 16.8 L, Will % (Auto) 9.9, Eos % (Auto) 0.2, Baso % (Auto) 0.2, Absolute Neuts (auto) 4.4, Absolute Lymphs (auto) 1.02, Nucleated RBC % 0, Reactive Lymphocytes RARE 08/28/21 06:06: Sodium Cancelled, Potassium Cancelled, Chloride Cancelled, Carbon Dioxide Cancelled, Anion Gap Cancelled, BUN Cancelled, Creatinine Cancelled, Estim Creat Clear Calc Cancelled, Est GFR (MDRD) Af Amer Cancelled, Est GFR (MDRD) Non-Af Cancelled, BUN/Creatinine Ratio Cancelled, Glucose Cancel led, Calcium Cancelled, Total Bilirubin Cancelled, AST Cancelled, ALT Cancelled, Alkaline Phosphatase Cancelled, Total Protein Cancelled, Albumin Cancelled, Globulin Cancelled, Albumin/Globulin Ratio Cancelled 08/28/21 10:10: Sodium 140, Potassium 4.8, Chloride 112 H, Carbon Dioxide 26.0, Anion Gap 2 L, BUN 12, Creatinine 0.95, Estim Creat Clear Calc 102.60, Est GFR (MDRD) Af Amer 119, Est GFR (MDRD) Non-Af 99, BUN/Creatinine Ratio 12.6, Glucose 99, Calcium 9.2, Total Bilirubin 0.30, AST 21, ALT 32, Alkaline Phosphatase 88, Total Protein 6.6, Albumin 2.5 L, Globulin 4.1, Albumin/Globulin Ratio 0.6 L Micro: Microbiology 08/25/21 17:10 Urine, Clean Catch Streptococcus pneumoniae Antigen (M - Final 08/25/21 17:10 Urine, Clean Catch Legionella Antigen - Final 08/25/21 15:05 Mucosa - Nasopharyngeal Respiratory Panel (PCR) - Final 08/25/21 06:12 Nasal Secretion SARS-CoV-2 Antigen (Rapid) - Final Physical Exam Const alert, oriented x3 and no apparent distress Orientation / Consciousness: lethargic Exam Limitations: no limitations HEENT head/scalp atraumatic and moist oral mucous membranes Head and Scalp: normocephalic Eyes PERRL, EOMs intact bilaterally and conjunctivae normal Neck no lymphadenopathy Resp Resp Narrative: Markedly diminished breath sounds bibasilarly. No wheezes or crackles. On 6 L of oxygen. Cardio regular rate, regular rhythm, S1 normal heart sound, S2 normal heart sound and no murmurs GI normal to inspection, nondistended, normoactive bowel sounds, soft to palpation, non-tender and non-distended Extremity normal to inspection, full ROM and no clubbing, cyanosis or edema Peripheral Pulses: Yes pulses 2+ throughout Skin no rashes or lesions noted Neuro oriented x3, CN's II-XII intact bilaterally and moves all extremities Sensorium / Orientation: awake and alert Psych affect normal Assessment & Plan Assessment/Plan (1) Acute respiratory failure with hypoxia: (2) Pneumonia due to COVID-19 virus: PLAN: #Acute hypoxic respiratory failure due to covid 19 pneumonia * On 6L of oxygen by nasal canula * Titrate oxygen to maintain saturation above 90%. Breathing treatments br onchodilators. * on guaifenesin with codeine for severe cough * On Decadron and remdesivir * diurese as needed to maintain euvolemic status. #Hypokalemia: Resolved #History of bipolar disorder: On lithium #Depression: On buspirone DVT prophylaxis: Lovenox Charges/Coding Visit Charges Inpatient E&M: 44533 Subs Hosp L3
[2021-08-28] MEDS: guaiFENesin 10 ML UDC (200MG/10ML) 20 ML PO (21:00)
[2021-08-29] VITALS (15 sets, daily range): BP systolic 120–127; BP diastolic 77–85; PULSE 69–99; RESP 16–22; TEMP 36.2–36.8; O2SAT 84–100
[2021-08-29] MEDS: guaiFENesin 10 ML UDC (200MG/10ML) 20 ML PO (05:27)
[2021-08-29 07:20] LABS: Absolute Lymphocyte Count 1.55 X10^3/uL (0.83-4.51); Absolute Neutrophil Count 4.6 X10^3/uL (2.0-7.7); Basophil# 0.01 X10^3/uL; Basophil% 0.1 % (0-1); Eosinophil# 0.03 X10^3/uL; Eosinophils% 0.4 % (0-5); Hemoglobin 14.4 g/dL (13.0-16.5); Lymphocyte # 1.55 X10^3/ul (0.83-4.51); Mean Corp Hgb Conc 32.7 g/dL (32-36); Mean Corpuscular Hgb 29.6 pg (27.0-32.0); Mean Corpuscular Volume 90.3 fL (80-94); Mean Platelet Vol. 9.7 fl (6.2-12.0); Monocyte# 0.83 X10^3/uL; Monocyte% 11.8 % (0-10); NRBC Flagged by Analyzer 0 % (0-5); Neutrophil # 4.57 X10^3/uL (2.7-7.7); Neutrophil % 64.7 % (47-70); POSITIVE MORPHOLOGY YES; Platelet Count 259 K/mm3 (150-450); RBC Distribution Width SD 43.2 fl (35.1-43.9); Red Blood Count 4.87 M/mm3 (4.6-6.2); White Blood Count 7.1 K/mm3 (4.4-11.0)
[2021-08-29 07:26] LABS: Differential Indicated SCAN CRITERIA MET
[2021-08-29 07:59] LABS: ALB/GLOB Ratio 0.6 RATIO (0.9-2.4); AST(SGOT) 19 U/L (15-37); Alanine Aminotransfer ALT/SGPT 35 U/L (16-61); Albumin, Serum 2.6 g/dL (3.2-5.0); Alkaline Phosphatase 70 U/L (45-117); Anion Gap 5 (5-15); BUN 15 mg/dL (7-18); BUN/Creat Ratio 16.7 RATIO (10-20); Calcium,Total 9.1 mg/dL (8.5-10.1); Chloride 110 mmol/L (98-107); EST Glomerular Filtration Rate 105 mL/min (>60); Est Glom Filt Rate - Afr Amer 128 mL/min (>60); Globulin 4.2 g/dL (2.2-4.2); Glucose 80 mg/dL (74-106); Potassium 4.3 mmol/L (3.5-5.1); Protein, Total 6.8 g/dL (6.4-8.2); Sodium Level 139 mmol/L (136-145)
[2021-08-29 08:17] LABS: Reactive Lymphocyte RARE
[2021-08-29] MEDS: Enoxaparin 30 MG/0.3 ML Syringe SC ×2 (08:42→22:08)
[2021-08-29] MEDS: hydrOXYzine PAM 25 MG Capsule 100 MG PO (08:43)
[2021-08-29] MEDS: busPIRone 5 MG Tablet 10 MG PO ×2 (08:43→22:08)
[2021-08-29] MEDS: dexAMETHasone 4 MG Tablet 6 MG PO (08:43)
[2021-08-29] MEDS: Potassium Chloride Oral Tablet 20 MEQ 40 MEQ PO ×2 (08:43→22:10)
[2021-08-29] MEDS: Lithium Carbonate 300mg Capsule 600 MG PO ×2 (08:43→22:08)
[2021-08-29] MEDS: Sertraline 50 MG Tablet PO (08:44)
[2021-08-29] MEDS: Topiramate 200 MG Tablet PO (08:44)
[2021-08-29] MEDS: guaiFENesin/Codeine 5 ML UDC 10 ML PO ×2 (08:51→14:40)
[2021-08-29] MEDS: Acetaminophen 325 MG Tablet 650 MG PO (08:51)
--- NOTE | 2021-08-29 08:53 | NURSING ---
pt raises voice to nurse and yelling HARLEY, verbal de-escalation provided. MD then into room and clear expectations of recovery explained to pt by md and nurse
--- NOTE | 2021-08-29 09:03 | NURSING ---
pt states he needs a break from activity and is now sitting up in chair. will re-evaluate home oxygen needs later today
[2021-08-29] MEDS: 0.9% Saline Lock 10 ML Syringe IV (10:03)
--- NOTE | 2021-08-29 12:17 | PN.HOSP_ITS ---
Subjective Subjective Patient seen and examined. Patient was coughing quite badly and felt very uncomfortable. He was on 4 L of oxygen. Review of systems otherwise negative. Patient says he does not feel well enough to go home as he is coughing quite incessantly and feels quite weak and does not have anyone to help him at home. He has otherwise remained hemodynamically stable. Objective Data Objective Data Vital Signs: Vital Signs Temp Pulse Resp BP Pulse Ox 98.1 F 87 22 H 126/85 H 96 08/29/21 08:39 08/29/21 08:39 08/29/21 08:39 08/29/21 08:39 08/29/21 11:10 Oxygen Flow Rate (L/min) [ 4 AMBULATING with Oxygen #2] Oxygen Flow Rate (L/min) [ 3 AMBULATING with Oxygen #1] Oxygen Flow Rate (L/min) [At 4 REST with Oxygen] Oxygen Flow Rate (L/min) 4 Oxygen Delivery Method High Flow Weight: 240 lb 15.444 oz Body Mass Index (BMI) 38.9 Intake & Output: Intake and Output for Last 24 Hours 08/27/21 08/28/21 08/29/21 23:59 23:59 23:59 Intake Total 790 / 790 850 / 850 Output Total 950 / 950 1000 / 1000 Balance -160 / -160 -150 / -150 Lab / Micro Data Result Diagrams: 08/29/21 06:25 08/29/21 06:25 Labs: Laboratory Results - last 24 hr 08/29/21 06:25: WBC 7.1, RBC 4.87, Hgb 14.4, Hct 44.0, MCV 90.3, MCH 29.6, MCHC 32.7, RDW Std Deviation 43.2, RDW Coeff of Joanna 13.0, Plt Count 259, MPV 9.7, Immature Gran % (Auto) 1.000 H, Neut % (Auto) 64.7, Lymph % (Auto) 22.0, [place] % (Auto) 11.8 H, Eos % (Auto) 0.4, Baso % (Auto) 0.1, Absolute Neuts (auto) 4.6, Absolute Lymphs (auto) 1.55, Nucleated RBC % 0, Reactive Lymphocytes RARE 08/29/21 06:25: Sodium 139, Potassium 4.3, Chloride 110 H, Carbon Dioxide 24.0, Anion Gap 5, BUN 15, Creatinine 0.90, Estim Creat Clear Calc 108.30, Est GFR (MDRD) Af Amer 128, Est GFR (MDRD) Non-Af 105, BUN/Creatinine Ratio 16.7, Glucose 80, Calcium 9.1, Total Bilirubin 0.40, AST 19, ALT 35, Alkaline Phosphatase 70, Total Protein 6.8, Albumin 2.6 L, Globulin 4.2, Albumin/Globulin Ratio 0.6 L Micro: Microbiology 08/25/21 17:10 Urine, Clean Catch Streptococcus pneumoniae Antigen (M - Final 08/25/21 17:10 Urine, Clean Catch Legionella Antigen - Final 08/25/21 15:05 Mucosa - Nasopharyngeal Respiratory Panel (PCR) - Final 08/25/21 06:12 Nasal Secretion SARS-CoV-2 Antigen (Rapid) - Final Physical Exam Const alert and oriented x3 Constitutional Narrative: looks uncomfortable from incessant coughing Exam Limitations: no limitations HEENT head/scalp atraumatic and moist oral mucous membranes Head and Scalp: normocephalic Eyes PERRL, EOMs intact bilaterally and conjunctivae normal Neck no lymphadenopathy Resp Resp Narrative: Markedly diminished breath sounds bibasilarly. No wheezes or crackles. On 4 L of oxygen. Cardio regular rate, regular rhythm, S1 normal heart sound, S2 normal heart sound and no murmurs GI normal to inspection, nondistended, normoactive bowel sounds, soft to palpation, non-tender and non-distended Extremity normal to inspection, full ROM and no clubbing, cyanosis or edema Peripheral Pulses: Yes pulses 2+ throughout Skin no rashes or lesions noted Neuro oriented x3, CN's II-XII intact bilaterally and moves all extremities Sensorium / Orientation: awake and alert Psych Mood & Affect: anxious Assessment & Plan Assessment/Plan (1) Acute respiratory failure with hypoxia: (2) Pneumonia due to COVID-19 virus: PLAN: #Acute hypoxic respiratory failure due to covid 19 pneumonia * On 4L of oxygen by nasal canula * Titrate oxygen to maintain saturation above 90%. Breathing treatments bronchodilators. * on guaifenesin with codeine for severe cough * On Decadron and remdesivir * diurese as needed to maintain euvolemic status. * With walking pulse ox, needed 3 to 4 L of oxygen. #Hypokalemia: Resolved #History of bipolar disorder: On lithium #Depression: On buspirone DVT prophylaxis: Lovenox Disposition: For likely DC home tomorrow. We will keep him 1 more day to optimize him a bit more Charges/Coding Visit Charges Inpatient E&M: 78438 Subs Hosp L2
[2021-08-30] VITALS (7 sets, daily range): BP systolic 106–139; BP diastolic 66–91; PULSE 69–98; RESP 18–20; TEMP 36.4–36.9; O2SAT 85–97
[2021-08-30] MEDS: Sertraline 50 MG Tablet PO (09:02)
[2021-08-30] MEDS: Topiramate 200 MG Tablet PO (09:02)
[2021-08-30] MEDS: Lithium Carbonate 300mg Capsule 600 MG PO (09:02)
[2021-08-30] MEDS: busPIRone 5 MG Tablet 10 MG PO (09:02)
[2021-08-30] MEDS: hydrOXYzine PAM 25 MG Capsule 100 MG PO (09:02)
[2021-08-30] MEDS: Potassium Chloride Oral Tablet 20 MEQ 40 MEQ PO (09:02)
[2021-08-30] MEDS: dexAMETHasone 4 MG Tablet 6 MG PO (09:02)
[2021-08-30] MEDS: Enoxaparin 30 MG/0.3 ML Syringe SC (09:03)
[2021-08-30] MEDS: guaiFENesin/Codeine 5 ML UDC 10 ML PO (11:21)
--- NOTE | 2021-08-30 11:59 | CASEMGMT ---
Pt qualifies for home O2, fax[place] [facility] [place]. Email to Jami per request with information. Portable tank taken from [facility].
--- NOTE | 2021-08-30 12:05 | PCM.DC.SUM ---
Providers Date of Admission: 08/25/21 Primary Care Physician: Malaika Em BUTTON CUTTING MACHINE OPERATOR-C Reason For Visit: ACUTE HYPOXIC RESPIRATORY FAILURE/ACUTE COVID-19 Diagnosis Discharge Diagnosis (1) Acute respiratory failure with hypoxia: Status: Acute Code(s): J96.01 - Acute respiratory failure with hypoxia (2) Pneumonia due to COVID-19 virus: Status: Acute Code(s): U07.1 - COVID-19; J12.82 - Pneumonia due to coronavirus disease 2019 Medications at Discharge Home Medications buspirone 10 mg PO BID 08/23/21 hydroxyzine pamoate 100 mg PO DAILY 08/23/21 lithium carbonate 600 mg PO BID 08/23/21 sertraline 50 mg PO DAILY 08/23/21 topiramate 200 mg PO DAILY 08/23/21 apixaban [Eliquis] 2.5 mg PO BID #28 tab 08/30/21 guaifenesin [Mucinex] 1,200 mg PO BID #30 tab 08/30/21 Hospital Course Operations None Procedures None Summary of Care Provided Minutes Spent on Discharge: 40 Hospital Course: Patient is a 31-year-old male past medical history as outlined was admitted to the ED on 08/25/2021 with complaint of shortness of breath which have been going on for 1 week. Patient had been supposed to go to halfway but tested positive for Covid and so could not go. On admission, he was saturating at 83% on room air and improved to 93% on 4 L of oxygen. Chest x-ray showed bilateral pulmonary infiltrates and CT a of the chest showed bilateral infiltrates but was negative for PE. D-dimer was also elevated and he was hypokalemic on admission. He was admitted and managed for acute hypoxic respiratory failure due to COVID-19 pneumonia. He was put on remdesivir and Decadron as well as guaifenesin with codeine for severe cough. His oxygen was titrated downwards as tolerated and he was eventually weaned down to room air. However with walking pulse ox he needed up to 3 L of oxygen. Patient remained stable and was discharged home after significant improvement on 08/30/2021. He is to follow-up with his primary care doctor in 1 to 2 weeks. His D-dimer was 0.95 and so patient was discharged on p.o. Eliquis 2.5 mg twice daily for 2 weeks for thromboprophylaxis. Patient seen and examined prior to discharge. He felt much better. His cough did worsen a bit with exertion but otherwise felt fine. Review of systems otherwise negative. Labs and vitals reviewed. Home medication reviewed and reconciled. Physical Exam Const alert, oriented x3 and no apparent distress General Appearance: cooperative, comfortable and well kempt Orientation / Consciousness: awake, oriented to person, oriented to place and oriented to time HEENT normocephalic, head/scalp atraumatic and moist oral mucous membranes Eyes PERRL, EOMs intact bilaterally and conjunctivae normal Neck no lymphadenopathy Resp Resp Narrative: diminished breath sounds bibasilarly. on room air. Cardio regular rate, regular rhythm, S1 normal heart sound, S2 normal heart sound and no murmurs GI normal to inspection, nondistended, normoactive bowel sounds, soft to palpation, non-tender and non-distended Extremity normal to inspection, full ROM and no clubbing, cyanosis or edema Skin no rashes or lesions noted Neuro oriented x3, CN's II-XII intact bilaterally and moves all extremities Sensorium / Orientation: awake and alert Psych affect normal Mood & Affect: anxious Weight / BMI Weight Weight: 240 lb 15.444 oz Body Mass Index (BMI) 38.9 ABG / Lab / Microbiology Data Result Diagrams: 08/29/21 06:25 08/29/21 06:25 Microbiology: Microbiology 08/25/21 06:09 Blood Culture (Wb) - Anticubital Right Blood Culture - Final No growth in 5 days. 08/25/21 06:04 Blood Culture (Wb) - Anticubital Left Blood Culture - Final No growth in 5 days. 08/25/21 17:10 Urine, Clean Catch Streptococcus pneumoniae Antigen (M - Final 08/25/21 17:10 Urine, Clean Catch Legionella Antigen - Final 08/25/21 15:05 Mucosa - Nasopharyngeal Respiratory Panel (PCR) - Final 08/25/21 06:12 Nasal Secretion SARS-CoV-2 Antigen (Rapid) - Final D/C Instructions Discharge Diet: No restrictions Discharge Activity: Return to Normal Activity Weight Bearing Status: Weight bearing as tolerated Call your doctor if you observe: Fever of 101 or Higher, Shortness of breath and Swelling in the ankles Meaningful Use Info Meaningful Use Diagnoses (Choose all that apply): None applicable Discharge Plan Admission Admit Date/Time: 08/25/21 09:16 Primary Reason for Your Visit: acute hypoxic respiratory failure due to covid 19 pneumonia Attending Provider: Ping Mcknight Primary Care Provider: Malaika Em BUTTON CUTTING MACHINE OPERATOR Instructions Patient Instructions: Coronavirus Disease 2019 (COVID-19): Overview, Coronavirus Disease 2019 (COVID-19): Caring for Yourself or Others Additional Instructions / Restrictions: Use 3 L of oxygen for shortness of breath as needed. To remain in quarantine till 09/07/2021, to complete a 20 day course of quarantine. Discharge Orders/Prescriptions Prescriptions: New Mucinex 1,200 mg tablet extended release 12hr 1,200 mg PO BID Qty: 30 RF: 0 Eliquis 2.5 mg tablet 2.5 mg PO BID Qty: 28 RF: 0 Continued hydroxyzine pamoate 100 mg capsule 100 mg PO DAILY RF: 0 lithium carbonate 300 mg capsule 600 mg PO BID RF: 0 buspirone 10 mg tablet 10 mg PO BID RF: 0 topiramate 200 mg tablet 200 mg PO DAILY RF: 0 sertraline 50 mg tablet 50 mg PO DAILY RF: 0 Referrals / Follow Up: Malaika Em NP, BUTTON CUTTING MACHINE OPERATOR-C [Primary Care Provider] - Within 2 Weeks Disposition Disposition (needs filled in before D/C Order can be placed): Home, Self Care Charges/Coding Visit Charges Inpatient E&M: 56590 Disch Hosp
--- NOTE | 2021-08-30 14:10 | CASEMGMT ---
[facility] made RN CM aware they are unable to accept patient's insurance. Referral placed to [facility]. Call placed to confirm faxed order was received and aware to bring portable tank to hospital nursing unit.
== END 2021-08-30 19:00 | disposition home or self-care (01) | DRG 137 ==
LOC: ED 06:09 → MS3 13:29
PROVIDERS: Admitting Provider Internal Medicine; Emergency Provider Emergency Medicine; PCP Nurse Practitioner; Visit Provider Student in an Organized Health Care Education/Training Program
DX: U07.1 COVID-19 (principal); J12.82 Pneumonia due to coronavirus disease 2019; J96.01 Acute respiratory failure with hypoxia; F31.9 Bipolar disorder, unspecified; F17.210 Nicotine dependence, cigarettes, uncomplicated; E66.9 Obesity, unspecified; E87.6 Hypokalemia; F41.9 Anxiety disorder, unspecified; Z79.899 Other long term (current) drug therapy; Z28.3 Underimmunization status; Z65.3 Problems related to other legal circumstances; Z68.41 Body mass index [BMI] 40.0-44.9, adult
CPT/HCPCS: 36415; 71045; 71275; 80053; 83605; 83735; 84484; 85025; 85027; 85379; 86140; 87040; 87426; 87449; 87633; 87635; 93005; 94762; 96360; 97802; 99285; 99406; J7040; J7050; Q9967; U0005; A4216; J1940; U0003

== ENCOUNTER 2021-12-14 08:30 | Outpatient (RCR) | payer MEDICAID, SELFPAY ==
--- NOTE | 2021-12-14 09:20 | BH.COMM_ITS ---
Communication Note - Communication with Client Communication Note: Pt completed initial paperwork on [facility]. Pt has a long history of suicidal ideation which pt states is mostly passive. He has no definite plan for suicide. He does endorse having passive thoughts that he would not care if he but he states that he is afraid to kill himself. He has a history of cutting for self-harm and he most recently did this 1 month ago with a knife. No stitches were required. Pt denies any active SI, plan, or intent as of 12/14/21. Denies access to guns. Future oriented and reports he always asks for help before acting on thoughts. Case discussed with Dr. Escobar with verbal order to admit to IOP with dx of Bipolar I disorder F 31.4
--- NOTE | 2021-12-14 10:10 | BH.SGPN.GN ---
Behaviors/Verbalizations/Mental Status: [] Eye contact is fair. Motor activity is appropriate. Appearance is casual. Speech is Appropriate. Mood is dysthymic. Affect is constricted. Thoughts are linear and logical. No evidence of psychosis. Client Response/Progress/Benefit: [] Pt was an active participant in group discussions. Attentive during psycho-education on 4 types of conflict styles (Competing, Collaborating, Avoiding, and Accommodating). Worked with group to define conflict and identify how conflict is helpful. With peers identified barriers to addressing or managing conflict which included: fear of upsetting others, embarrassing self, abandonment, past negative experiences with conflict, and shutting down. Pt believes in the past he used more competing conflict style but now uses more accommodating or avoiding style. Benefited from group due to increase insight and awareness of conflict, conflict styles, and obstacles to managing conflict. Pt to continue IOP to increase healthy coping, improve daily functioning and prevent decompensation.
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
--- NOTE | 2021-12-14 12:41 | BH.DR.ITP ---
Initial Treatment Plan Patient Information Visit Information: ADMISSION DATE: EXPECTED LOS: 4-6 weeks Problems/Symptoms Problem #1:: Mood instability with current depression Symptom:: Sadness, hopelessness, worthlessness, low motivation, anhedonia, biological disruption of appetite and sleep, low energy, guilt, passive thoughts of Problem #2:: Anxiety Symptom:: Social discomfort, panic attacks, flashbacks, avoidance, reexperiencing.
--- NOTE | 2021-12-17 09:52 | BH.COMM_ITS ---
Communication Note - Communication with Client Communication Note: Pt did not show for IOP today. He was not present when [facility] transportation arrived at this home. This is the 2nd time he has missed scheduled transportation for his IOP appointment. Noted struggles getting up in the AM. This may be obstacle to consistent attendance.
--- NOTE | 2021-12-18 09:02 | BH.SGPN.GN ---
Behaviors/Verbalizations/Mental Status: []Eye contact is good. Motor activity is appropriate. Appearance is casual. Speech is Appropriate. Mood is depressed and anxious. Affect is congruent. Thoughts are linear and logical. No evidence of psychosis. Reviewed daily check in sheet and pt reports of suicidal ideations and intent as 3/5, however this is consistent with pt reported baseline. Pt willing to follow-up with individual therapist to further assess for risk/plan for safety. Client Response/Progress/Benefit: []Pt was an active participant in group discussion, reports this is his second day in tx and he is still adjusting to the group environment. Provided appropriate feedback and supportive suggestions to peers. Emotion for today is ?placid?. Shared he has been struggling with mental health for much of his life and has historically turned to unhealthy means of coping. Expressed wanting to change this narrative and develop healthier skills for managing his emotions and improve his self-esteem. Appeared to benefit from sharing with group and the supportive structure of group environment. Will continue in IOP to prevent decompensation, continue to stabilize mood, and increase application of healthy coping skills. Narrative Note: []
--- NOTE | 2021-12-18 10:00 | BH.SGPN.GN ---
Behaviors/Verbalizations/Mental Status: []Pt alert and oriented, disheveled appearance. Eye contact good. Motor activity appropriate. Speech within normal limits. Affect congruent, mood euthymic. Thoughts linear, logical, no signs of hallucinations or delusions. Client Response/Progress/Benefit: []Pt responded well to session, attentive and participating in activity. Pt contributing during the discussion of what fear of failure means and what contributes to the development of fear of failure. Group shared that the fear of failure can lead to isolation, self-sabotage, pushing people away, self-doubt, avoidance, and not trying. Pt made connections during the activity including recognizing unrealistic expectations of progress. Pt appeared to benefit from gaining awareness of the impact fear of failure can have on one?s mental health and wellbeing. Will continue IOP tx to reduce SI, improve distress tolerance skills, and prevent decompensation. Narrative Note: []
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
--- NOTE | 2021-12-18 11:10 | BH.SGPN.GN ---
Behaviors/Verbalizations/Mental Status: []Pt alert and oriented, neatly dressed and groomed. Eye contact good. Motor activity appropriate. Speech within normal limits. Affect congruent, mood content. Thoughts linear, logical, no signs of hallucinations or delusions. Client Response/Progress/Benefit: []Pt responded well to session, engaged in the experiential activity and attentive throughout group processing. Pt reported fear of failure has kept pt from ?living my life.? Pt completed fear of failure worksheet and was able to identify thoughts and behaviors that reinforce personal fear of failure including negative thinking and self-sabotage. Pt participated in small group discussion regarding strategies to overcome fear of failure. Identified wanting to work on challenging fear of failing by consistently coming to IOP. Appeared to benefit from increased knowledge of strategies to combat fear of failure and gaining self-awareness. Pt will continue IOP tx to prevent decompensation, maintain safety, and reduce impulsivity. Narrative Note: []
--- NOTE | 2021-12-18 11:42 | BH.MTP ---
[facility] Treatment Plan - Patient Information Program Physician:: Ruthy Escobar Primary Therapist:: Murphy Ying - Psychiatric Diagnoses Psychiatric Diagnoses:: Bipolar Disorder, most recent episode depressed, severe w/o psychosis. Social Anxiety Disorder. PTSD Diagnosis Code(s):: F31.4 - Estimated LOS Estimated LOS (in weeks):: 8 Problem/Goal #1 - Problem/Goal #1 Stated Goal:: Client will also increase mood stability, reduce depression, and reduce suicidal thoughts due to Bipolar disorder through the Intensive Outpatient Program AEB self-report and decreased scores in the Depression, Suicidal, Romelia, and Anger domains on the DSM-5 crosscutting scales. Description of Barriers: Limited support, unemployed, financial stressors, legal issues, hx of trauma, addiction concerns, and long-standing depression/poor self-esteem Functional Impact: Pt reports that his mood impacts his ability to function (not completing ADLs or daily tasks). Severe isolation due to mood instability and social anxiety. Goal Relevant Strengths/Supports: motivated to make changes, desire to work, has long-term goals. - Objectives Objective #1 Stated Objective: Client will reduce depression, suicidal thinking, and impulsivity by identifying 2-3 triggers for mood changes and at least 3 ways to cope with these. Interventions: Through group and individual sessions, therapist will help client identify triggers and warning signs of depression and emotional dysregulation including emotional, physical, and behavioral changes. Discharge Criteria: Able to identify 3 triggers to mood changes, depression, and suicidal thinking and 3 ways to cope with triggers. Target Date: 01/18/22 Review Date: 01/02/22 Objective #2 Stated Objective: Client will identify 5 physical warning signs of anger and 5 ways to calm and manage anger. Interventions: Teach the client calming techniques as part of a tailored strategy for reducing chronic and acute physiological tension that accompanies the escalation of his/her angry feelings. Discharge Criteria: Identify physiological warning signs to anger, anger buttons, and skills to transportation dispatch manager anger. Target Date: 01/18/22 Review Date: 01/02/22 Problem/Goal #2 - Problem/Goal #2 Stated Goal:: Client will reduce overall frequency, intensity, and duration of anxiety to improve functioning AEB self-report and reduction of scores on the Anxiety domain on the DSM-5 cross-cutting scales. Description of Barriers: Limited support, unemployed, financial stressors, legal issues, hx of trauma, addiction concerns, and long-standing depression/poor self-esteem Functional Impact: Isolative and avoidant behaviors due to anxiety and increased irritability other people. Pt admits to remaining isolated in his apartment all day which impacts his mental health. Goal Relevant Strengths/Supports: motivated to make changes, desire to work, has long-term goals. - Objectives Objective #1 Stated Objective: Client will identify 2-3 cognitive distortions that lead to rumination and learn 2-3 ways to manage these thoughts to better manage anxiety as shown by reduced DSM-5 scores for anxiety. Interventions: Through individual and group counseling will provide education on the most common cognitive distortions and teach client the connection between thoughts, emotions, and feelings. Therapist will assist client in identifying, challenging, and replacing dysfunctional thoughts with positive, more realistic thoughts. Discharge Criteria: Able to identify 3 common cognitive distortions and ways to challenge, reframe, and address these. Target Date: 01/18/22 Review Date: 01/02/22 Objective #2 Stated Objective: Identify and Implement calming and coping strategies to reduce overall anxiety and to cope with the experience of panic. Interventions: Through individual and group counseling will teach client various calming coping skills to help client self-regulate when experiencing anxiety. Therapist will provide psychoeducation on anxiety and help client see the benefits of engaging in anxiety-provoking situations rather than avoiding them. Discharge Criteria: Identify and implement 3 coping strategies for anxiety management. Target Date: 01/18/22 Review Date: 01/02/22
--- NOTE | 2021-12-18 12:07 | BH.COMM_ITS ---
Communication Note - Communication with Client Communication Note: Met with patient briefly to assess risk. Daily symptom tracker notes 3/5 for suicidal thoughts and 3/5 for intent. Pt reports that this is baseline for him. Denies any plan, thoughts of methods, or intent. Life is worth living. He reports that he has thoughts of and thinks of methods almost daily for the past several years Its just part of my depression. He is future-oriented and believes that IOP has been beneficial. He discussed his fut ure career plans and goals. States that his treatment goals for IOP are to not always be down in the dumps. Would like to work on coping skills for depression and anxiety. Does not present as imminent risk to himself due to no active SI, plan, or intent. Contracts for safety. Long-standing fleeting passive SI.
--- NOTE | 2021-12-20 09:00 | BH.SGPN.GN ---
Behaviors/Verbalizations/Mental Status: [] Eye contact is good. Motor activity is appropriate. Appearance is disheveled. Speech is Appropriate. Mood is euthymic. Affect is full. Thoughts are linear and logical. No evidence of psychosis. Reviewed daily check in sheet and pt reports 1/5 for suicidal thoughts and 0/5 for intent. This is below pt's reported baseline Client Response/Progress/Benefit: [] Pt was an active participant in group discussion on mindfulness and meditation. Daily symptoms tracker notes 2/5 for depression and anger. Notes 3/5 for anxiety. Pt states I feel really good today. Mental health wins was accomplishing tasks yesterday. States that he went grocery shopping and picked up needed items. Reports being more motivated and less anxious. Increased socialize yesterday and with IOP has been beneficial. Pt provided appropriate and positive feedback to peers. He states that being social in group is very anxiety producing and while he is feeling positive today he mostly believes that nothing is worth it. Progress noted per pt report. Benefited from group support, encouragement, and feedback. Will continue in IOP to maintain safety, stabilize mood, and improve functioning. Narrative Note: []
--- NOTE | 2021-12-20 10:11 | BH.SGPN.GN ---
Behaviors/Verbalizations/Mental Status: []Client alert and oriented, casual dress, hygiene tended to. Eye contact good. Motor activity WNL. Speech appropriate rate and tone. Affect congruent, mood anxious and depressed. Thoughts linear, logical, no signs of hallucinations or delusions. Client Response/Progress/Benefit: [] Pt engaged in session as evidenced by pt listening to others and providing input throughout. Pt stated Problem-solving skills can prevent additional unnecessary problems from arising?. Pt reported his impatience with himself and negative thoughts can be a barrier to addressing her problems directly. Pt recognized his impatience has led to taking short-cuts and creating additional problems as a result. Pt worked cooperatively with peers during problem solving activity, able to work through problem by using A,B,C,D,E problem solving method. Pt seemed to benefit from learning about problem solving method and rehearsing problem solving skills in the moment. Pt to continue IOP level of care to continue to promote mood stability, increase utilization of healthy coping skills, and prevent decompensation. Narrative Note: []
--- NOTE | 2021-12-24 16:07 | BH.COMM ---
Communication Note - Communication with Client Communication Note: Pt did not show for IOP and transportation this AM. This is his 3rd no call/no show. Did not respond to calls or email. Reached out to his PO as CHER is signed. She reports that she communicated with him this afternoon and pt is not in significant distress. PO reports pt was in the ER on 12/22/21 intoxicated and verbalizing SI. Once sober he was re-evaluated and denied SI. Was discharged home. PO is frustrated with pt's lack of motivation and follow-through with IOP.
--- NOTE | 2021-12-26 10:00 | BH.SGPN.GN ---
Behaviors/Verbalizations/Mental Status: []Client alert and oriented, casually dressed and groomed. Eye contact good. Motor activity appropriate. Speech within normal limits. Affect congruent, mood euthymic. Thoughts linear, logical, no signs of hallucinations or delusions. Client Response/Progress/Benefit: []Client responded well to session AEB listening attentively to others. Client was engaged throughout group discussion defining pitfalls, and psychoeducation on internal and external triggers to pitfalls. Client participated in experiential activity illustrating how easy it is to fall into pitfalls when we are unaware of them. Client aided group members in problem solving and successfully completing the activity. Appeared to benefit from increased knowledge of pitfalls and their triggers. Will continue IOP treatment to continue increasing application of healthy coping skills and decreasing self-isolation to improve daily functioning. Narrative Note: []
--- NOTE | 2021-12-26 10:28 | BH.MDN ---
Multi-Disciplinary Note - Note 45-min Individual Time Started:: 09:15 Date: 12/26/21 Purpose of session/treatment goals addressed:: Met with pt to review progress and symptoms. Reviewed treatment plan goals. Eye Contact:: Good Motor Activity:: Appropriate Appearance:: Disheveled Speech:: Appropriate Mood:: Irritable, Depressed Affect:: Congruent Thoughts:: Linear, Logical, No evidence of hallucinations/delusions noted Staff Interventions:: thought challenging, treatment planning, goal setting Client Response:: Pt reports that he missed Friday due to sleeping in. He reports that he has difficulty falling asleep and will often not fall asleep till 4 or 5am. Its unclear whether this is due to napping and inactivity throughout the day, poor sleep cycle, or perhaps due to dx. Encouraged him to discuss with psychiatry. Pt shared that he was in the [facility] ER this past Friday due to being intoxicated. Pt states I don't remember anything. Admits to drinking 5 shots and a beer and then I blacked out. At some point he talked with his mother and told her that he cut himself. Pt states that he cut himself by accident and shows cut which is on back part of reanna. His mother then called 911. According to ER notes when police arrived he reported depression and no point in living. Was evaluated once sober and discharged home. Pt shared that he was really low that day due to argument with my only friend. Contradictory statements stating I'm 100% by myself which is cause to depression followed by I just don't want to be around people and wants to live in the [place]. Responded well to challenge and pointing absolute thinking. He agreed that his current routine of sitting alone in his apartment 24 hours a day and avoiding people has not been beneficial. He agreed to changing up his routine which would involve time away from apartment. We reviewed online bus routes and he was open to taking the bus to local park to walk. He also identified a walking route by his apartment. Able to identify how physical activity could also help with sleep. Last 15 minutes of the session we discussed anger management skills and he was given task to identify physiological warning signs and anger buttons. Risks/Concerns:: Denies active suicidal ideations, plan, or intent. Was evaluated in the [facility] ER this past weekend due to SI while intoxicated and discharged home. Pt denies being suicidal stating I don't remember anything at all due to being intoxicated. No access to guns. Does not present as imminent danger to self due to no active SI, plan, or intent. Progress Toward Goals/Plan:: No progress noted. Obstacles to progress include poor sleep, inconsistent attendance, limited support, financial strains, and relapse on alcohol. Some fear that pt is minimizing his alcohol use. His depression and anger are primary concerns and are impacting his daily functioning as he isolates all day. Primarily triggers to depression are lack of close support and regret over his past behaviors and current life. We continue to monitor alcohol use. Plan is to continue in IOP to maintain safety, increase healthy coping, and improve functioning. Time Stopped:: 10:00
--- NOTE | 2021-12-26 12:44 | PCM.BH.PN_ITS ---
Progress Note Progress Note: History of Present Illness/Interim History: [] The patient is a 31-year-old male who is seen in follow-up at the [facility] behavioral health IOP program where he is being seen with a history of bipolar disorder, alcohol use disorder and methamphetamine use disorder. I last saw the patient 1 week ago and at that time the Zoloft was discontinued and Latuda was added to his regimen. In addition the lithium was changed to be taken all in the evening and is extended release now. The patient had some attendance issues last week but overall is enjoying the IOP program. About 5 days ago the patient became intoxicated with alcohol after drinking 5 shots and 1 beer and ended up going to the emergency room after sending vague suicidal messages to his family. The patient was seen in the emergency room and when he sobered up he denied that he was suicidal at all. The patient was sent home and return to the IOP program. The patient states that he did blackout when he drank the alcohol but denies any morning drinking. He is taking the Latuda but says that it makes him feel restless and makes him want to drink alcohol more. His mood remains somewhat angry and frustrated at times. He also has depression which he. He denied any recent cutting or self-harm. He now denies any suicidal ideation, thoughts of self harm, homicidal ideation, hallucinations, delusions or symptoms of pura. Current Psychiatric Medications: [] He states that he has been compliant with his medications. He is taking lithium carbonate extended release, 1200 mg p.o. nightly; Topamax 200 mg p.o. daily; Zoloft was discontinued 1 week ago. BuSpar 10 to 20 mg twice a day and hydroxyzine 1-2 as needed daily. Mental Status Examination: [] The patient is a obese male who appears normal for stated age and is seen wearing a mask due to the pandemic. He is casually dressed and groomed with good hygiene. He has no psychomotor agitation or retardation. He is cooperative during the interview. Eye contact is good and speech is normal rate and rhythm and fluent with no pressure. Mood is depressed and frustrated. Affect is mildly constricted to full affect. Thought processes goal-directed and organized. Thought content: There is no evidence of passive thoughts of , suicidal ideation, plan for suicide, homicidal ideation, hallucinations or delusions. Reality testing is intact. Judgment is limited. Insight is limited. Impulsivity is high. Diagnoses: [] 1. Bipolar disorder, most recent episode depressed, severe without psychosis 2. Social anxiety disorder 3. PTSD 4. Alcohol use disorder 5. GINA?using CPAP 6. 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 Primary support and work issues 8. History of legal issues and currently on parole. Plan: [] The patient agrees to discontinue the Latuda as it is making him feel worse. The other medications he will continue at their current doses. He refuses naltrexone to decrease his drinking. He agrees to try trazodone to help with sleep 50 mg, 1-2 at bedtime in addition he is can add Lamictal 25 mg p.o. for 14 days then 50 mg for 14 days. Prescription was sent in for both of these. The patient did not tolerate Seroquel in the past and is reluctant to try another antipsychotic. Vraylar was discussed but he wishes to not take this for now. He understands the importance of staying sober from alcohol. He will continue the IOP program at [facility] as the structure, support, education and group therapy will hopefully prevent worsening of his symptoms which might require hospitalization. He felt safe during the interview and if it anytime he does not feel safe he will let us know or go to the emergency room. The risk, options, possible complications and side effects of the medications were discussed with the patient again and he understands and accepts these. I will see the patient in follow-up in 2 weeks.
--- NOTE | 2021-12-27 09:00 | BH.SGPN.GN ---
Behaviors/Verbalizations/Mental Status: [] Eye contact is good. Motor activity is appropriate. Appearance is disheveled. Speech is Appropriate. Mood is depressed. Affect is flat. Thoughts are linear and logical. No evidence of psychosis. Reviewed daily check in sheet and no reports of suicidal ideations or intent. Client Response/Progress/Benefit: [] Pt was an active participant in group discussion. Attentive. Provided appropriate feedback. Emotion for today is placid. Mental health win is my anger is decreased and I feel better coming here even thought I'm not a people person. Shared that he is trying to be more optimistic and utilizing thoughts challenging and reframing. Shared that he has limited support and only 1 person I can rely on stating I just can't spend all the time by myself. Admits that this past weekend he was depressed due to conflict with his friend which led to relapse on alcohol. Insight that alcohol use was to self-medicate depression. Future-oriented and talking about setting goals for his future and for self-care (hobby goals). Progress noted per pt report. Benefited from group support, encouragement, and feedback. Will continue in IOP to maintain safety, increased healthy coping, and stabilize mood. Narrative Note: []
--- NOTE | 2021-12-27 10:05 | BH.SGPN.GN ---
Behaviors/Verbalizations/Mental Status: []Client alert and oriented, casually dressed and groomed. Eye contact good. Motor activity appropriate. Speech within normal limits. Affect congruent, mood euthymic. Thoughts linear, logical, no signs of hallucinations or delusions. Client Response/Progress/Benefit: []Client responded well to session AEB sharing and listening attentively to others. Client appeared connected to group discussion defining boundaries and why having healthy boundaries is important. Client was engaged throughout psychoeducation on types of boundaries, including physical, emotional, and intellectual. Client appeared connected to the topic, attentively listening to group members share personal examples of different types of boundaries. Client appeared to benefit from increased knowledge of the types of boundaries and increased self-awareness of personal boundaries. Will continue IOP treatment to continue decreasing self-isolation and increasing depression management skills to improve daily functioning. Narrative Note: []
--- NOTE | 2021-12-27 11:18 | BH.SGPN.GN ---
Behaviors/Verbalizations/Mental Status: []Client alert and oriented, casually dressed and groomed. Eye contact good. Motor activity appropriate. Speech within normal limits. Affect congruent, mood anxious, depressed. Thoughts linear, logical, no signs of hallucinations or delusions. Client Response/Progress/Benefit: []Pt responded well to session AEB listening attentively to peers and providing some input throughout. Pt attentive during continued psychoeducation on the different boundary types as well as the various boundary setting styles. Pt noted connecting most with the rigid boundary setting styles. Pt shared he struggles at times to give others a chance and has pre-emptively cut people out before giving himself a chance to get to know them better. Pt stated this has led to limiting his external supports and reinforced depressive sx related to loneliness. Pt was given a handout on strategies for healthy boundary setting. Pt identified wanting to work on improving his rigid boundaries by challenging himself to be more willing to reach out to others and develop new relationships. Appeared to benefit from increasing insight to boundary setting and the impacts on mental health. Progress noted in pt?s increased consistency in attendance and continued engagement in tx. Will continue IOP tx to prevent decompensation, improve depression management skills, and encourage healthy coping behaviors. Narrative Note: []
--- NOTE | 2022-01-01 09:00 | BH.SGPN.GN ---
Behaviors/Verbalizations/Mental Status: [] Eye contact is good. Motor activity is appropriate. Appearance is casual. Speech is Appropriate. Mood is euthymic. Affect is full. Thoughts are linear and logical. No evidence of psychosis. Reviewed daily check in sheet and no reports of suicidal ideations or intent. Client Response/Progress/Benefit: [] Pt was an active participant in group discussions. Attentive. Provided appropriate feedback. Daily symptom tracker notes 3/5 for anxiety and 2/5 for irritability. Emotion for today is optimistic. States I'm feeling good emotionally and I had a really good weekend. Pt followed through with goals from last week and changes up his routine. He was more active and began to go on walks. States that this helped increase his energy, decrease hopelessness, and helped tire him out (which improved sleep). He notes that he was ill yesterday which he believes is sinus or allergies however emotionally he is doing better. Progress noted per pt report. Benefited from group support, encouragement, and feedback. Will continue in IOP to maintain safety, increase healthy coping, and prevent decompensation. Narrative Note: []
--- NOTE | 2022-01-01 10:16 | BH.SGPN.GN ---
Behaviors/Verbalizations/Mental Status: []Pt alert and oriented, disheveled appearance and hygiene is poor. Eye contact good. Motor activity appropriate. Speech within normal limits. Affect constricted, mood content. Thoughts linear, logical, no signs of hallucinations or delusions. Client Response/Progress/Benefit: []Pt receptive to session, listening attentively and taking notes as the group brainstormed the positive and negative aspects of stress on physical and mental health. Identified racing thoughts and GI issues. Group worked together to define stress and provided input during discussion about eustress vs distress. Pt identified personal stressors which included: emotional control, mental wellbeing, lack of relationships, legal problems, and finances. Pt reports belief that their stress jar is full and when their stress jar overflows, pt?s personality ?becomes very dark? and pt reverts to unhealthy behaviors. Seemed to benefit from increased awareness of current stressors and impact of too much stress on the mind and body. Will continue IOP tx to improve impulse control and emotional regulation skills, improve mood stability, and reduce the use of unhealthy coping skills. Narrative Note: []
--- NOTE | 2022-01-01 11:15 | BH.SGPN.GN ---
Behaviors/Verbalizations/Mental Status: []Client alert and oriented, casually dressed and groomed. Eye contact good. Motor activity appropriate. Speech within normal limits. Affect congruent, mood anxious and depressed. Thoughts linear, logical, no signs of hallucinations or delusions. Client Response/Progress/Benefit: []Client engaged in session AEB listening attentively, taking notes, and providing input throughout. Client processed current stressors impacting their mental health with the group, sharing that he has gained insight that avoidance and denial continues to impede overall ability to effectively manage stressors. Client participated in discussion about the 4 A's of managing stress and expressed connecting with the various benefits of each. Identified he would like to work on using the skill of acceptance to reduce unhealthy avoidance, as well as better adapt his mindset about these stressors to increase his motivation to address them as well. Client seemed to benefit from increased awareness of the impact of stress on mental health and increasing repertoire of stress management strategies. Progress noted in client overall consistency and attendance. Will continue IOP tx to continue to improve mood stability and coping repertoire, improve support network, as well as prevent decompensation. Narrative Note: []
--- NOTE | 2022-01-02 10:05 | BH.SGPN.GN ---
Behaviors/Verbalizations/Mental Status: []Client alert and oriented, casually dressed and groomed. Eye contact good. Motor activity appropriate. Speech within normal limits. Affect congruent, mood euthymic. Thoughts linear, logical, no signs of hallucinations or delusions. Client Response/Progress/Benefit: []Client responded well to session AEB sharing and listening attentively to others. Client participated in group discussion identifying common characteristics of ineffective communication and the benefits of effective communication, stating that it allows both parties to understand each other better. Client participated in group activity identifying communication styles, including passive, aggressive, passive aggressive, and assertive. Client provided an example of passive aggressive communication as talking behind someone?s back. Client appeared to benefit from increased knowledge of communication styles and the benefits of healthy communication. Will continue IOP treatment to continue decreasing social isolation and increasing depression management skills to improve daily functioning. Narrative Note: []
--- NOTE | 2022-01-02 10:15 | BH.MDN_ITS ---
Multi-Disciplinary Note - Note 60-min Individual Time Started:: 09:00 Date: 01/02/22 Purpose of session/treatment goals addressed:: Reviewed progress and current symptoms. Reviewed DSM5 outcome measurements and progress on treatment plan goals. Eye Contact:: Good Motor Activity:: Appropriate Appearance:: Disheveled Speech:: Appropriate Mood:: Euthymic Affect:: Full Thoughts:: Linear, Logical, No evidence of hallucinations/delusions noted Staff Interventions:: rapport building, reviewed DSM-5, goal setting Client Response:: Pt reports that he slept 9 hours yesterday which is great. Pt has reported inability to sleep in the past few weeks which was impacting his mood as well as attendance in IOP (both of which had improved). Self-reported decrease in depression and anxiety. After last session pt has switched up his d aily routine and is leaving the house more. He has gone on several walks which has helped his mood and tired him out. He states I want to maintain this. We identified aspects of his life that have changed in the past week which have improved mood which he was able to identify as increased socialization, increase support, changing daily routine, and being more active. We discussed the importance of keeping these as part of his life. We also talked about morning routine and completing ADLS (showering, brushing teeth, etc). He developed several positive goals yesterday and has plan to pay of court costs and get his license back with his tax return. He is eager to get back to working. Risks/Concerns:: No risks or concerns noted. Progress Toward Goals/Plan:: Progress noted since he presented to the ER on 12/22/21 intoxicated and with SI concerns. Denies any SI in the past week. Self- reports improved mood and decreased depression. Increased daily activity and decreased isolative behaviors which have improved mood. Improved sleep. Improved attendance in IOP which he reports is better than I thought. Reports being motivated and future-oriented. Pt states that he is feeling positive however is nervous about being able to maintain and shared examples of decompensation in the past. He continues to report anger and negative thoughts which I'm suppressing. According to DSM-5 cross cutting scales pt showed a 25% decrease on the depression domain, a 33% decrease on the anxiety domain, a %75 decrease on the SI domain, however scores on the anger domain remained the same. Will continue in IOP to maintain safety, prevent decompensation, and stabilize mood. Time Stopped:: 09:50
--- NOTE | 2022-01-02 11:10 | BH.SGPN.GN ---
Behaviors/Verbalizations/Mental Status: []Client alert and oriented, casually dressed and fair grooming. Eye contact fair. Motor activity appropriate. Speech WNL. Affect constricted, mood dysthymic. Thoughts linear, logical, no signs of hallucinations or delusions. Client Response/Progress/Benefit: []Client responded well to session AEB client listening attentively to others and providing input during group discussion on the pay offs and costs of the different communication styles. Client stated he most often uses aggressive and passive communication styles. Client reported these styles impact him because either doesn't get needs met or will cause more issues for himself. Client reported he has tried to be assertive in the past but the people he was assertive with did not respect him which he stated makes it hard to want to change out he communicates. Agreed it could help to try assertiveness with other people so he doesn't generalize that no one will respect him when assertive. Attentive during psychoeducation on interpersonal DBT skill TREVOR. Client seemed to benefit from increasing awareness of healthy strategies to improve communication. Client will continue IOP to stabilize moods, improve emotion regulatoin and prevent decompensation.
--- NOTE | 2022-01-02 14:00 | BH.TPR ---
Treatment Plan Review Date of Admission:: 12/13/21 Date of Treatment Plan Review:: 01/02/22 Admitting Diagnoses:: 1. Bipolar 1 disorder, most recent episode depressed, severe without psychosis (F31.4). 2. Social anxiety disorder. 3. PTSD. 4. Alcohol use disorder. 5. Methamphetamine use disorder in full remission for 3 years Current Diagnoses:: 1. Bipolar 1 disorder, most recent episode depressed, severe without psychosis (F31.4). 2. Social anxiety disorder. 3. PTSD. 4. Alcohol use disorder. 5. Methamphetamine use disorder in full remission for 3 years Patient's Response to Treatment:: For the first 2 weeks of IOP pt struggled with consistent attendance and cancelled or did not show for 3 days. He relapsed on alcohol on 12/22/21 and presented to the ER intoxicated with reports of verbalizing SI. In the past week his attendance has improved. When present he is engaged and is an active participant in groups/individual counseling. He is also medication complaint. He reports being motivated to continue in IOP and reports benefits from education and support. Due to his isolative lifestyle and lack of support a majority of his socialization and time outside of apartment is here in IOP. Status of Current Problems and Symptoms: Progress noted since he presented to the ER on 12/22/21 intoxicated and with SI concerns. Denies any SI in the past week. Self-reports improved mood and decreased depression. Increased daily activity and decreased isolative behaviors which have improved mood. Improved sleep. Improved attendance in IOP which he reports is better than I thought. Reports being motivated and future-oriented. Pt states that he is feeling positive however is nervous about being able to maintain and shared examples of decompensation in the past. He continues to report anger and negative thoughts which I'm suppressing. According to DSM-5 cross cutting scales pt showed a 25% decrease on the depression domain, a 33% decrease on the anxiety domain, a 75% decrease on the SI domain, however scores on the anger domain remained the same. Will continue in IOP to maintain safety, prevent decompensation, and stabilize mood. Problem #1 Problem Name:: Mood Instability Status of Goals:: Scores on depression and SI domains decreased, however scores on anger domain remained the same, and scores on the pura domain increased. Pt does not clinically present with pura noting improved sleep, normal speech, no disorganized thoughts, and no impulsive behaviors. He reports urges to do risky things. Still early in treatment and while he can identify triggers to mood changes his primary coping skills are distraction and inconsistent thought challenging. We began to have discussion on identify physiological warning signs to anger and anger mgmt skills however he did not completed worksheet so this still remains in progress. Problem #2 Problem Name:: Anxiety Status of Goals:: Scores on the outcomes show a decrease in the anxiety domain. Able to identify 1 cognitive distortions (absolute thinking) however not able to consistently challenge or implement skills to address this distortion. He has identify numerous calming skills including meditation, acoustics therapy, nature walks, and distraction however has not utilized consistently./
--- NOTE | 2022-01-07 09:00 | BH.SGPN.GN ---
Behaviors/Verbalizations/Mental Status: [] Eye contact is good. Motor activity is appropriate. Appearance is disheveled. Speech is Appropriate. Mood is euthymic. Affect is full. Thoughts are linear and logical. No evidence of psychosis. Reviewed daily check in sheet and no reports of suicidal ideations or intent. Client Response/Progress/Benefit: [] Pt was an active participant in group discussion. Attentive. Provided appropriate feedback. Daily symptom tracker notes /5 for depression and anger. Emotion for today is good but concerned. Mental health wins include working on my care this weekend and planning for the future. More active and hopeful. I feel better. States that he believes that his medications are helpful. Sleep has improved. Also reports that groups are helpful. Shared that he struggled at first with the concept of sharing his struggles with others however has benefited from noting feeling alone with his mental health struggles. Group empathized with this. Has plans to utilize tax return to pay off some debt, get his license back, and begin to look for work and social outlets. Progress noted per pt report. Benefited from group support, encouragement, and feedback. Will continue in IOP to maintain safety, prevent decompensation, and increase healthy coping skills. Narrative Note: []
--- NOTE | 2022-01-07 10:32 | BH.COMM ---
Communication Note - Communication with Client Communication Note: Pt came up to this therapist during 2nd group. He received a text from family that his mother is in the hospital. She has been ill with terminal condition for several months. Briefly processed and he was excused from IOP today to be with his mother.
--- NOTE | 2022-01-08 09:05 | BH.SGPN.GN ---
Behaviors/Verbalizations/Mental Status: [] Eye contact is good. Motor activity is appropriate. Appearance is disheveled. Speech is Appropriate. Mood is anxious. Affect is congruent. Thoughts are linear and logical. No evidence of psychosis. Reviewed daily check in sheet and no reports of suicidal ideations or intent. Client Response/Progress/Benefit: [] Pt was an active participant in group discussion. . Group watched short video on CBT and discussed. Attentive. Provided appropriate feedback. Daily symptom tracker notes 3/5 for depression/anxiety and 1/5 for anger. Emotion for today is hopeful. Mental health wins including continuing to work on his car with support. Optimistic and engaged in getting car ready. Other win is that he is sleeping better. Notes falling asleep around 7-8pm and waking up between 3-4am. States I feel good. Shared with the group that his mother was taken to the hospital yesterday. Mother has stage 4 cancer and has been ill for 14 years you never know if its the end or not which is an emotional rollercoaster for patient. According to pt his mother has refused any further interventions for the cancer and that family is prepared for it. Admits that talking to strangers about his is challenging however helpful to vent. Group was supportive and provided encouragement which was beneficial. Pt will continue in IOP to maintain safety, stabilize mood, and increase coping skills and functioning. Narrative Note: []
--- NOTE | 2022-01-08 10:15 | BH.SGPN.GN ---
Behaviors/Verbalizations/Mental Status: []Pt alert and oriented, casually dressed and groomed. Eye contact good. Motor activity appropriate. Speech within normal limits. Affect congruent, mood euthymic. Thoughts linear, logical, no signs of hallucinations or delusions. Client Response/Progress/Benefit: []Pt responded well to session AEB pt attentive throughout group discussion. Group discussed the origin of coping skills, examples of unhealthy coping, and why we use unhealthy coping skills. Pt reported he has used drugs, lashing out, and ?intoxicants? to cope with stressors in his life. Pt participated in experiential activity, and was attentive throughout group processing, taking notes and nodding throughout discussion of the importance of external supports and internal coping skills. Pt shared that the activity helped pt realize the importance of a strong base of skills. Appeared to benefit from increased knowledge of internal coping skills and external supports. Pt will continue IOP tx to prevent decompensation, increase the use of healthy coping skills, and improve overall self-care. Narrative Note: []
--- NOTE | 2022-01-08 11:17 | BH.SGPN.GN ---
Behaviors/Verbalizations/Mental Status: []Client alert and oriented, casually dressed and groomed. Eye contact good. Motor activity appropriate. Speech within normal limits. Affect congruent, mood euthymic. Thoughts linear, logical, no signs of hallucinations or delusions. Client Response/Progress/Benefit: []Client responded well to session AEB taking notes and providing input and examples throughout. Group discussed the different categories of coping skills which included distraction, emotional release, grounding, self-love, and thought challenging. Client reported struggling to use his healthy skills in moments he feels anxious or when struggling to remember the skills he has learned. Created a coping skill menu identifying various skills to try in each category. Client?s coping skill menu included: woodworking, fishing, meditation, and music. Appeared to benefit from increasing repertoire of healthy coping skills. Will continue tx to further promote mood stability, improve consistent skill application, and prevent decompensation. Narrative Note: []
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
--- NOTE | 2022-01-10 10:05 | BH.SGPN.GN ---
Behaviors/Verbalizations/Mental Status: [] Eye contact is good. Motor activity is appropriate. Appearance is casual. Speech is Appropriate. Mood is depressed. Affect is flat. Thoughts are linear and logical. No evidence of psychosis. Client Response/Progress/Benefit: [] Pt was an active participant in group discussion. Attentive during psychoeducation on self-care. Engaged in group experiential activity. Group was presented with 8 myths about self-care which included; you're lazy or weak, its too expensive, not enough time to complete self-care. its not a priority, it's selfish, etc. Group worked together to come up with ways to bust these myths to encourage the use of self-care to improve mental health and decrease stress/distress. Pt was an active participant in interactive discussion. Pt along with peers challenged the myths noting the importance of self-care. Pt participated in group activity and was able to relate the activity to the topic of self-care as well as its importance in helping us manage stress, emotions, and everyday obstacles. Benefited from increased awareness of benefits of self-care and overcame stigma of taking time to self. Will continue in IOP to maintain safety, increase healthy coping, and improve functioning. Narrative Note: []
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
== END 2022-01-12 23:59 ==
LOC: BHIOP 08:30
PROVIDERS: PCP Nurse Practitioner; Referring Provider Psychiatry & Neurology Psychiatry; Visit Provider Psychiatry & Neurology Psychiatry
DX: F31.4 Bipolar disorder, current episode depressed, severe, without psychotic features (principal); Z91.51 Personal history of suicidal behavior; F41.8 Other specified anxiety disorders; F43.10 Post-traumatic stress disorder, unspecified; G47.33 Obstructive sleep apnea (adult) (pediatric); E66.9 Obesity, unspecified; Z79.899 Other long term (current) drug therapy; Z72.89 Other problems related to lifestyle
CPT/HCPCS: 90792; 99214; H2012; H2020; S9480; 90834; 90837

== ENCOUNTER 2021-12-22 20:13 | Emergency (ER) | payer MEDICAID, SELFPAY ==
[2021-12-22 20:17] VITALS: BP 137/97; PULSE 111; RESP 22; TEMP 36.3; O2SAT 95; BMI 40.1
[2021-12-22] MEDS: Diphth,Pertuss(Acell),Tet Vac 0.5 ML Vial IM (20:50)
[2021-12-22 20:55] LABS: Absolute Lymphocyte Count 3.17 X10^3/uL (0.83-4.51); Absolute Neutrophil Count 6.2 X10^3/uL (2.0-7.7); Basophil# 0.06 X10^3/uL; Basophil% 0.6 % (0-1); Eosinophil# 0.24 X10^3/uL; Eosinophils% 2.2 % (0-5); Hematocrit 50.3 % (40-54); Hemoglobin 16.8 g/dL (13.0-16.5); Lymphocyte # 3.17 X10^3/ul (0.83-4.51); Lymphocyte % 29.6 % (19-41); Mean Corp Hgb Conc 33.4 g/dL (32-36); Mean Corpuscular Hgb 29.5 pg (27.0-32.0); Mean Corpuscular Volume 88.4 fL (80-94); Mean Platelet Vol. 9.2 fl (6.2-12.0); Monocyte# 0.98 X10^3/uL; Monocyte% 9.2 % (0-10); NRBC Flagged by Analyzer 0 % (0-5); Neutrophil # 6.23 X10^3/uL (2.7-7.7); Neutrophil % 58.1 % (47-70); Platelet Count 231 K/mm3 (150-450); RBC Distribution Width CV 12.5 % (11.6-14.6); RBC Distribution Width SD 40.6 fl (35.1-43.9); Red Blood Count 5.69 M/mm3 (4.6-6.2); White Blood Count 10.7 K/mm3 (4.4-11.0)
[2021-12-22 21:16] VITALS: RESP 20
[2021-12-22 21:19] LABS: ALB/GLOB Ratio 0.9 RATIO (0.9-2.4); AST(SGOT) 20 U/L (15-37); Alanine Aminotransfer ALT/SGPT 58 U/L (16-61); Albumin, Serum 3.9 g/dL (3.2-5.0); Alkaline Phosphatase 115 U/L (45-117); Anion Gap 7 (5-15); BUN 12 mg/dL (7-18); BUN/Creat Ratio 11.3 RATIO (10-20); Calcium,Total 9.7 mg/dL (8.5-10.1); Chloride 111 mmol/L (98-107); Creatinine, Serum 1.06 mg/dL (0.70-1.30); EST Glomerular Filtration Rate 87 mL/min (>60); Est Glom Filt Rate - Afr Amer 105 mL/min (>60); Estimated Creatinine Clearance 91.95 ml/min; Globulin 4.3 g/dL (2.2-4.2); Glucose 132 mg/dL (74-106); Potassium 3.5 mmol/L (3.5-5.1); Protein, Total 8.2 g/dL (6.4-8.2); Sodium Level 138 mmol/L (136-145)
[2021-12-22 21:58] LABS: Amphetamine Urine VISTA NEGATIVE (<1000 ng/mL); Barbiturate Urine VISTA NEGATIVE (< 200 ng/mL); Benzodiazepine Urine VISTA NEGATIVE (< 200 ng/mL); Cocaine Urine VISTA NEGATIVE (< 300 ng/mL); Ecstacy Urine VISTA NEGATIVE (< 500 ng/mL); Methadone Urine VISTA NEGATIVE (< 300 ng/mL); PCP Urine VISTA NEGATIVE (< 25 ng/mL); THC Urine VISTA NEGATIVE (< 50 ng/mL); Vista UDS pH Range 5
[2021-12-22 22:00] VITALS: RESP 18
--- NOTE | 2021-12-22 22:45 | EDS_ITS ---
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 He was drinking today and reports that he is not supposed to be drinking. He was feeling like he wanted to kill himself. He cut his left hand. He is right-hand dominant. He says his tetanus is up-to-date. He was having second thoughts. No other associated issues. Prior similar symptoms: Yes Recent Illness/Hospitalization: No [facility] Medical History Acute respiratory failure with hypoxia Alcohol use disorder Anxiety and depression Bipolar 1 disorder, depressed, severe Bipolar disorder Methamphetamine use disorder, mild, in sustained remission Obstructive sleep apnea Pneumonia due to COVID-19 virus PTSD (post-traumatic stress disorder) Social anxiety disorder Home Medications buspirone 10 - 20 mg PO BID 08/23/21 [History Last Taken Unknown] hydroxyzine pamoate 100 mg PO DAILY PRN 08/23/21 [History Last Taken Unknown] apixaban [Eliquis] 2.5 mg PO BID #28 tab 08/30/21 [Rx Last Taken Unknown] dexamethasone 6 mg PO DAILY #6 tab 08/30/21 [Rx Last Taken Unknown] guaifenesin [Mucinex] 1,200 mg PO BID #30 tab 08/30/21 [Rx Last Taken Unknown] lithium carbonate 1,200 mg PO QHS 30 Days #120 tab 12/14/21 [Rx Last Taken Unknown] lurasidone [Latuda] 40 mg PO DAILY 30 Days #30 tab 12/14/21 [Rx Last Taken Unknown] topiramate [Topamax] 100 mg PO DAILY 12/19/21 [History Last Taken Unknown] Allergy/AdvReac Type Severity Reaction Status Date / Time No Known Allergies Allergy Verified 12/22/21 20:27 Family History (Updated 08/25/21 @ 15:[address] uGera Vicente MD) Mother Mental health disorder Father Mental health disorder Social History (Updated 08/25/21 @ 15:[address] Guera Vicente MD) Smoking Status: Current every day smoker tobacco type: cigarettes and smokeless tobacco substance use type: does not use ROS ROS ED Constitutional Constitutional ED: Denies fever(s) Eyes Eyes: Denies change in vision ENT ENT ED: Denies ear pain Cardiovascular Cardiovascular: Denies chest pain Respiratory/Chest Respiratory/Chest: Denies dyspnea Gastrointestinal Gastrointestinal: Denies abdominal pain Genitourinary Genitourinary ED: Denies dysuria Musculoskeletal Musculoskeletal: Denies myalgias Integumentary Reports Abrasions; Denies rash Neurologic Neurologic: Denies headache(s) Psychiatric Psychiatric: Reports anxiety, depression, suicidal ideation and suicidal thoughts Endocrine Endocrinology: Denies polyuria Allergic/Immunologic Allergic/Immunologic ED: Denies urticaria EXAM Physical Exam Const Vital Signs: 12/22/21 20:17 12/22/21 21:16 12/22/21 22:00 Temperature 97.4 F L Temperature Source Temporal Pulse Rate 111 H Respiratory Rate 22 H 20 H 18 Blood Pressure 137/97 H Blood Pressure Mean 110 Pulse Ox 95 Oxygen Delivery Method Room Air Positive well nourished and well developed General Appearance ED: well developed HEENT Negative for trauma Eyes EOMs intact bilaterally Neck supple Resp normal respiratory effort and clear to auscultation bilaterally Cardio regular rate and regular rhythm GI normal to inspection, nondistended, normoactive bowel sounds and non-tender Palpation: soft Extremity Extremity Narrative: Left small finger superficial linear abrasions with mild oozing of blood Neuro oriented x3 and no sensory deficits noted Sensorium / Orientation: alert Motor Exam: strength 5/5 throughout Psych Mood & Affect: depressed and anxious Skin No no wounds Trauma: abrasion MDM MDM MDM Narrative Medical decision making narrative: Patient had suicide precautions. [place] slip was completed. Medical clearance testing was performed. Labs including lithium all are normal or unremarkable. Alcohol level was 262. Covid is negative. Tetanus was updated. Dressing was applied by nursing to his abrasions on his hand. I expect the patient's alcohol level to drop to 100 near 3 AM tonight. Oncoming physician will reassess. The patient is giggling and pleasant. He expresses remorse. I suspect he is not truly suicidal. His gesture was a superficial abrasion. I feel that if he is no longer suicidal, his pink slip may be negated and he may be discharged for outpatient follow-up with his mental health professional. If he is still having suicidal thoughts, he will need placement. At this point he is medically cleared for transfer and admission to a psychiatric facility should he need it. Impression #1 mood disorder Impression #2 alcohol intoxication Disposition is pending at the time of this dictation. Lab Data Attestation: I reviewed the patient's lab results. Labs: Laboratory Results - last 24 hr 12/22/21 12/22/21 12/22/21 20:40 20:40 20:40 WBC 10.7 RBC 5.69 Hgb 16.8 H Hct 50.3 MCV 88.4 MCH 29.5 MCHC 33.4 RDW Std Deviation 40.6 RDW Coeff of Joanna 12.5 Plt Count 231 MPV 9.2 Immature Gran % (Auto) 0.300 Neut % (Auto) 58.1 Lymph % (Auto) 29.6 [place] % (Auto) 9.2 Eos % (Auto) 2.2 Baso % (Auto) 0.6 Absolute Neuts (auto) 6.2 Absolute Lymphs (auto) 3.17 Nucleated RBC % 0 Sodium 138 Potassium 3.5 Chloride 111 H Carbon Dioxide 20.0 L Anion Gap 7 BUN 12 Creatinine 1.06 Estim Creat Clear Calc 91.95 Est GFR (MDRD) Af Amer 105 Est GFR (MDRD) Non-Af 87 BUN/Creatinine Ratio 11.3 Glucose 132 H Calcium 9.7 Total Bilirubin 0.20 AST 20 ALT 58 Alkaline Phosphatase 115 Total Protein 8.2 Albumin 3.9 Globulin 4.3 H Albumin/Globulin Ratio 0.9 Urine Opiates Screen Urine Methadone Screen Ur Barbiturates Screen Ur Phencyclidine Scrn Ur Amphetamines Screen MDMA (Ecstasy) Screen U Benzodiazepines Scrn [place] 0.60 Urine Cocaine Screen U Cannabinoids Screen Ur Drug Screen Comment Ethyl Alcohol 262.0 12/22/21 20:40 WBC RBC Hgb Hct MCV MCH MCHC RDW Std Deviation RDW Coeff of Joanna Plt Count MPV Immature Gran % (Auto) Neut % (Auto) Lymph % (Auto) [place] % (Auto) Eos % (Auto) Baso % (Auto) Absolute Neuts (auto) Absolute Lymphs (auto) Nucleated RBC % Sodium Potassium Chloride Carbon Dioxide Anion Gap BUN Creatinine Estim Creat Clear Calc Est GFR (MDRD) Af Amer Est GFR (MDRD) Non-Af BUN/Creatinine Ratio Glucose Calcium Total Bilirubin AST ALT Alkaline Phosphatase Total Protein Albumin Globulin Albumin/Globulin Ratio Urine Opiates Screen NEGATIVE Urine Methadone Screen NEGATIVE Ur Barbiturates Screen NEGATIVE Ur Phencyclidine Scrn NEGATIVE Ur Amphetamines Screen NEGATIVE MDMA (Ecstasy) Screen NEGATIVE U Benzodiazepines Scrn NEGATIVE [place] Urine Cocaine Screen NEGATIVE U Cannabinoids Screen NEGATIVE Ur Drug Screen Comment Ethyl Alcohol Discharge Plan Triage Chief Complaint: Suicidal ED Provider: Macro Carney Dx/Rx/DC Orders Prescriptions: No Action hydroxyzine pamoate 100 mg capsule 100 mg PO DAILY PRN (Reason: Anxiety) RF: 0 buspirone 10 mg tablet 10 - 20 mg PO BID RF: 0 Mucinex 1,200 mg tablet extended release 12hr 1,200 mg PO BID Qty: 30 RF: 0 Eliquis 2.5 mg tablet 2.5 mg PO BID Qty: 28 RF: 0 dexamethasone 6 mg tablet 6 mg PO DAILY Qty: 6 RF: 0 Latuda 40 mg tablet 40 mg PO DAILY 30 Days Qty: 30 RF: 0 lithium carbonate 300 mg tablet extended release 1,200 mg PO QHS 30 Days Qty: 120 RF: 1 topiramate [Topamax] 100 mg Tablet 100 mg PO DAILY RF: 0 Primary Care Provider: Malaika Em NP
[2021-12-22] MEDS: Ondansetron ODT 4 MG Tablet 8 MG PO (23:51)
[2021-12-22] MEDS: Ibuprofen 600 MG Tablet PO (23:52)
[2021-12-23 00:01] VITALS: BP 128/77; PULSE 101; RESP 18; O2SAT 96
[2021-12-23 01:00] VITALS: RESP 20
[2021-12-23] MEDS: Acetaminophen 500 MG Tablet 1000 MG PO (03:07)
[2021-12-23 03:09] VITALS: PULSE 74; RESP 17; O2SAT 97
--- NOTE | 2021-12-23 03:37 | ED.RN ---
DR AGARWAL AT BEDSIDE WITH PT. DR AGARWAL STATES PT IS SAFE TO GO HOME PT IS NOW DENYING SUICIDAL AND HOMICIDAL IDEATIONS. DR AGARWAL DOES NOT WANT A REPEAT ETOH LEVEL AT THIS TIME, DR AGARWAL STATES CLINICALLY SOBER. SUICIDAL PRECAUTIONS DC'D. PT UNABLE TO OBTAIN TRANSPORTATION. ALL PERSONAL BELONGINGS EXCEPT POCKET KNIFE AND SMOKELESS TOBACCO RETURNED TO PT.
--- NOTE | 2021-12-23 03:39 | ED.RN ---
suicide precautions discontinued at this time per Dr Alva.
[2021-12-23 07:00] VITALS: BP 120/72; PULSE 74; RESP 17; O2SAT 98
== END 2021-12-23 07:01 | disposition home or self-care (01) ==
PROVIDERS: Emergency Provider Emergency Medicine; PCP Nurse Practitioner; Visit Provider Emergency Medicine
DX: S61.412A Laceration without foreign body of left hand, initial encounter (principal); F10.929 Alcohol use, unspecified with intoxication, unspecified; F31.9 Bipolar disorder, unspecified; X78.9XXA Intentional self-harm by unspecified sharp object, initial encounter; F17.220 Nicotine dependence, chewing tobacco, uncomplicated; F43.10 Post-traumatic stress disorder, unspecified; F17.210 Nicotine dependence, cigarettes, uncomplicated; Y90.8 Blood alcohol level of 240 mg/100 ml or more; Z79.899 Other long term (current) drug therapy; G47.33 Obstructive sleep apnea (adult) (pediatric); Z23 Encounter for immunization; Z79.01 Long term (current) use of anticoagulants; F40.10 Social phobia, unspecified; Y93.9 Activity, unspecified; Y99.9 Unspecified external cause status; Y92.9 Unspecified place or not applicable
CPT/HCPCS: 80053; 80178; 80307; 82077; 85025; 87811; 90715; 96372; 99285

== ENCOUNTER 2022-01-14 07:58 | Outpatient (RCR) | payer MEDICAID, SELFPAY ==
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
--- NOTE | 2022-01-14 10:10 | BH.SGPN.GN ---
Behaviors/Verbalizations/Mental Status: []Client alert and oriented, casually dressed and groomed. Eye contact good. Motor activity appropriate. Speech within normal limits, at times struggling to remain on topic - often making loose associations. Affect congruent, mood euthymic. Thoughts linear, logical, no signs of hallucinations or delusions. Client Response/Progress/Benefit: []Client engaged during session AEB taking notes, providing input, and completing worksheet. Connected with discussion on crisis and how coping with external crises by using unhealthy coping skills could result in a personal crisis. Shared personal examples of this happening in his own life. Group reflected on the importance of having awareness of personal warning signs to prevent reaching crisis point. Group identified potential warning signs for crisis and client completed the personal warning signs worksheet. Client identified personal crisis warning signs to include: negative thinking, isolating, and feeling disconnected. Client benefited by increasing awareness of what leads to crisis and personal warning signs. Client will continue IOP tx to prevent decompensation, gain additional healthy support, and improve daily functioning. Narrative Note: []
--- NOTE | 2022-01-14 11:10 | BH.SGPN.GN ---
Behaviors/Verbalizations/Mental Status: []Client alert and oriented, disheveled in appearance. Eye contact good. Motor activity restless. Speech within normal limits. Affect congruent, mood euthymic. Thoughts linear, logical, no signs of hallucinations or delusions. Client Response/Progress/Benefit: []Client responded well to session as evidenced by client listening attentively to others and providing strategies during small group discussion. Connected as fellow participants discussed the importance of identifying and addressing personal warning signs. Client identified warning signs for crisis and gained further awareness of earliest warning signs. Client created a crisis action plan to help client better manage warning signs for crisis. Client?s action plan for isolation includes: reaching out to supports, change environment, schedule time to see someone, and go for a walk. Client appeared to benefit from creating a crisis action plan and increasing self-awareness. Client to continue IOP tx to improve positive thinking, continue use of healthy coping and prevent decompensation.
--- NOTE | 2022-01-16 10:05 | BH.SGPN.GN ---
Behaviors/Verbalizations/Mental Status: [] Eye contact is good. Motor activity is appropriate. Appearance is disheveled. Speech is Appropriate. Mood is depressed. Affect is flat. Thoughts are linear and logical. No evidence of psychosis. Client Response/Progress/Benefit: [] Pt participated at times during group discussion. Attentive during psychoeducation on different anxiety disorders. Participated at times during an interactive discussion on defining anxiety, identifying physiological symptoms of anxiety, and identifying safety behaviors (behaviors used to ease anxiety or discomfort which are often unhealthy). Physiological symptoms reported by patient were heart pounding, headaches, tunnel vision. Along with peers identified common safety behaviors including; sleeping to cope, cancelling plans, not answering the phone, and utilizing substances to numb the pain. Benefited from increased awareness and insight on anxiety and its impact. Plan is to continue in IOP to maintain safety, increase health coping skills, and prevent decompensation. Narrative Note: []
--- NOTE | 2022-01-16 10:52 | BH.MDN_ITS ---
Multi-Disciplinary Note - Note 60-min Individual Time Started:: 09:00 Date: 01/16/22 Purpose of session/treatment goals addressed:: Reviewed current symptoms and progress in IOP. Addressed treatment goals 1 and 2. Eye Contact:: Fair Motor Activity:: Appropriate Appearance:: Disheveled Mood:: Depressed Affect:: Flat Thoughts:: Linear, Logical, No evidence of hallucinations/delusions noted Staff Interventions:: thought challenging Client Response:: Pt reports emotional struggles since this weekend due in large part to another verbal argument and conflict with his friend. I blocked him from everything. Argument with friend led to alcohol use and eventually ending up in the ER intoxicated and suicidal 3 weeks ago. He discussed the specifics of the conflict and he feels justified in his decision to block friend and discontinue the friendship because he was called a little bitch. He said we were family but that isn't true. He has reframed this as being beneficial, however he had reported in the past the importance of this friendship. From his perspective he managed his anger well which means that he did not get physical with anyone. Denies self-destructive behaviors since the event (i.e. substance use), however is returning to previous isolative behaviors. When asked what he accomplished yesterday he stated I got the mail and smoked a cigar while sitting in my care. We talked about unhealthy coping skills such as isolation and alcohol use. Insight into the poor decisions he makes when he drinks, however I'm never going to give it up completely. No desire to be sober. Shared that when he decides to drink it is intense and he will drink with purpose to get super intoxicated to self-medicate or numb. He will drink multiple shots rather than have a beer or two every couple hours. Therapist brought up possible strategies and pointed out dangerous behaviors while intoxicated however pt was defensive. It would appear that when angry, depression, stressed, or anxious has strong urges to self-medicate or numb. He a ppeared lethargic Friday and today which he admits. Denies any substance abuse. Reports that he takes 2 Vistaril and a Buspar in the AM when he wakes up along with other medications. IOP has noticed difficulty concentrating and retaining information. Encouraged him to discuss with psychiatry this AM. Moments after we discussed he asked me to write down on a piece of paper what we discussed. Risks/Concerns:: No risks or concerns noted. Strongly encouraged healthy coping skills to manager international stressors pointing out that 3 weeks ago he attempted to numb with alcohol which led to accidently hurting himself, calling support verbalizing SI, and then ending up in the ER. Progress Toward Goals/Plan:: Regression noted. Less active. Increased isolation. Less engaged in group since this past weekend. Resistant and defensive at times regarding incorporating healthy coping skills. Also increased lethargy in the AM causing difficulty focusing and retaining information. Friend has had positive impact on patient and due to pt's limited support its concerning that he has blocked him. Pt denies any alcohol or substance abuse since 12/22/21. He did report utilizing anger mgmt skills recently which is benefit. Will continue in IOP to prevent decompensation, stabilize mood, and improve functioning. Time Stopped:: 09:55
--- NOTE | 2022-01-16 12:24 | PCM.BH.PN ---
Progress Note Progress Note: History of Present Illness/Interim History: [] The patient is a 31-year-old male who is seen in follow-up at the [facility] behavioral health IOP program where he is being treated. The patient has a history of bipolar disorder, PTSD, alcohol use disorder, methamphetamine use disorder in remission. I last saw the patient 3 weeks ago and at that time he was placed on Lamictal and we continued his Latuda. Patient states that his mood is better since starting Latuda and he feels he is less depressed than he was before. He still complains of some anxiety and says that he feels anxious almost always. The patient's biggest complaint is his restless leg syndrome symptoms that began several months ago after he took Seroquel. He states that the symptoms involve the urge to move his legs and discomfort if he does not move them and this is much worse at night when he is in bed but sometimes it occurs during the day. When he wakes up in the morning the patient told his counselor that he takes 2 of his Vistaril. He is not having a panic attack then and he is not more anxious in the morning but he states that he takes 2 of them for unknown reasons. The patient at times seems sedated at the IOP program. He is sometimes a difficult historian as he seems to have some cognitive cloudiness or possible overmedication. The patient denies any alcohol use since 1 month ago before I last saw him. The patient has decrease his Topamax down to 100 mg at bedtime and he does not feel that the Topamax decreased his craving for alcohol. He states he craves alcohol off-and-on but is able to resist this. He denies any recent cutting or self-harm. He denies also passive thoughts of , suicidal ideation, homicidal ideation, hallucinations, delusions or symptoms of pura. Current Psychiatric Medications: [] Latuda 40 mg p.o. at dinner with food (x1 month now); Lamictal 50 mg p.o. nightly (on starter pack and has been on 50 mg for 1 week); lithium carbonate extended release 1200 mg p.o. nightly; Topamax 100 mg p.o. nightly which she was supposed to discontinue but he has not.; Trazodone 100 mg p.o. nightly; BuSpar 10 mg p.o. twice a day and hydroxyzine 100 mg, supposed to be taken as needed but the patient is taking 2 of them or 200 mg p.o. every morning which may account for some of his sedation. Mental Status Examination: [] Patient is an obese male who appears normal for stated age and is seen wearing a mask due to the pandemic. He is casually dressed and groomed with good hygiene. He is ambulatory with a normal gait. He has some evidence of bouncing of his legs while in the interview and states that this is what he does at night only worse. Eye contact is good and speech is normal rate and rhythm and fluent with no pressure. Mood is mildly depressed. Affect is full and normal. Thought process is goal-directed and organized. Thought content: There is no evidence of passive thoughts of , suicidal ideation, plan for suicide, homicidal ideation, hallucinations or delusions. Reality testing is intact. Judgment is intact but limited. Insight is limited. Impulsivity is moderate to high. Diagnoses: [] 1. Bipolar disorder, most recent episode depressed, severe without psychosis (improving) 2. Social anxiety disorder 3. PTSD 4. Alcohol use disorder 5. GINA using CPAP 6. 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 Primary support and work issues Plan: [] The patient will continue the IOP program at [facility] as the structure, support, education and group therapy will hopefully prevent worsening of the patient's symptoms which might require hospitalization. He felt safe during the interview and if it anytime he does not feel safe he will let us know or go to the emergency room. The risks, options, possible complications and side effects of the medication were again discussed with the patient and he understands and accepts these. Long discussion was had about the patient's medications and how he takes them. The Vistaril 100 mg dose was discontinued online through the pharmacy and the patient was given a prescription for Vistaril 50 mg, 1 p.o. as needed for panic attack up to twice a day; Topamax will be discontinued to possibly help with his cognition; Lamictal will be increased to 100 mg p.o. nightly in 1 week when he finishes the starter pack. He will increase his Latuda to 60 mg p.o. in the evening with dinner and a prescription is sent in for this also. In addition gabapentin is prescribed 300 mg p.o. nightly to help with his restless leg syndromes. Prescriptions were sent in for Lamictal, Latuda and gabapentin and the Vistaril dose was decreased to 50 mg/tab. The patient will continue to follow-up with his outpatient psychiatric and medical providers and the patient will continue to remain sober from alcohol. I will see the patient in follow-up in 1 to 2 weeks.
--- NOTE | 2022-01-21 08:52 | BH.COMM_ITS ---
Communication Note - Communication with Client Communication Note: Pt called in on 01/20/22 and left message stating that he was pursuing an inpatient admission. Stated that his PO was picking him up and taking him. No ER visit noted in the EMR. When this therapist arrived in on 01/21/22 he called PO and left message. Reached out and spoke with patient. Denies SI. States that he relapsed on alcohol on or Friday and drank a half liter of vodka which he stole. His PO discovered the alcohol relapse as well as the theft. According to pt his PO is planning on picking him and and taking him to a facility for alcohol abuse and that this admission is not related to acute mental health issue. After speaking with pt his PO called. She has suspicions that he has been drinking consistently over the past week. These are all PO violations and she is recommending substance abuse treatment with drug testing and more focus on relapse prevention. She is making an assessment appointment at [facility] here in [place]. Pt will be discharged from [facility].
--- NOTE | 2022-01-21 09:19 | BH.DS_ITS ---
Discharge Summary - Demographics Date of Admission:: 12/14/21 Discharge Date: 01/21/22 Presenting Problems at Admission:: Pt is a 31 year old male with hx of Bipolar, Anxiety, and PTSD. Hx of of Alcohol and Meth Use disorder. Previous psychiatric admission the [facility] in 2019. Referred to [facility] by [facility] mental health crisis team after reaching out to them via phone on 11/16/21 due to fleeting SI. Pt stated during pre-admission assessment I have serious self-destructive problems. Reports struggles with daily functioning due to mental health symptoms. Not completing his ADLs or daily tasks/responsibilities. Endorses erratic sleep, poor appetite, low energy, low motivation, isolation, irritability, anhedonia, hopelessness, and worthlessness. Frequent panic attacks. Denies active suicidal ideations, plan, or intent. Hx of previous attempt in 2004 via cutting wrists (did not received medical care). Pt reports long-standing suicidal thoughts which are mainly passive and similar to survival ambivalence I would mind if I . Reports occasionally thinks of methods however no plan or intent. Lost his job in 01/2021 due to getting a DUI. Last use of alcohol was over a month ago. Hx of Meth use for several years with last use in 2019. Currently on probation for his DUI. Family hx of Bipolar (mother, brother). Maternal aunt completed suicide. Hx of Alcoholism and addiction on paternal side. Endorses vague visual and auditory hallucinations, which occur infrequently. Denies HI. Discharge Diagnoses:: 1. Bipolar disorder, most recent episode depressed, severe without psychosis. 2. Social anxiety disorder. 3. PTSD. 4. Alcohol use disorder Reason for Discharge:: According to pt and his PO (Ofelia Melara) pt relapsed on alcohol last week (drank a half liter of vodka). It also came to light that he stole the alcohol. These are both PO violations. PO also believes that pt has been drinking on a consistent basis. PO spoke with patient and the current plan is to seek substance-abuse focused treatment (drug screen, relapse prevention skills, etc.) at local agency [facility]. - Treatment Progress During Treatment & Response: Pt's progress in [facility] was erratic. For the first 2 weeks of IOP pt struggled with consistent attendance and cancelled or did not show for 3 days. He relapsed on alcohol on 12/22/21 and presented to the ER intoxicated with reports of verbalizing SI. Since that event his attendance improved. When present he was engaged and an active participant in groups/individual counseling. Medication complaint per his report. He reported benefits from education and support. Due to his isolative lifestyle and lack of support a majority of his socialization and time outside of apartment is here in IOP. Progress noted since he presented to the ER on 12/22/21 intoxicated and with SI concerns. Denies any SI in the past several week. During his 3 week treatment review pt self-reports improved mood and decreased depression. Increased daily activity and decreased isolative behaviors which have improved mood. Improved sleep. He continues to report anger and negative thoughts which I'm suppressing. According to DSM-5 cross cutting scales pt showed a 25% decrease on the depression domain, a 33% decrease on the anxiety domain, a 75% decrease on the SI domain, however scores on the anger domain remained the same. Will continue in IOP to maintain safety, prevent decompensation, and stabilize mood. Unfortunately pt has decompensated since 01/19/22 after an argument with friend. Regression noted. Less active. Increased isolation. Less engaged in group since this past weekend. Resistant and defensive at times regarding incorporating healthy coping skills. Also increased lethargy in the AM causing difficulty focusing and retaining information. Issues Still to be Addressed:: Depression, anger mgmt, anxiety, trauma, addiction, Discharge Recommendations/Instructions:: Follow up with case management and psychiatry at [facility]. Spoke with pt' [facility] who arranging substance abuse treatment through [facility] in [place]. Discharge Handout: Complete Discharge Handout with client on aftercare options and continuity of care.
== END 2022-01-21 09:23 ==
LOC: BHIOP 07:58
PROVIDERS: PCP Nurse Practitioner; Referring Provider Psychiatry & Neurology Psychiatry; Visit Provider Psychiatry & Neurology Psychiatry
DX: F31.4 Bipolar disorder, current episode depressed, severe, without psychotic features (principal); Z91.51 Personal history of suicidal behavior; F41.8 Other specified anxiety disorders; F43.10 Post-traumatic stress disorder, unspecified; G47.33 Obstructive sleep apnea (adult) (pediatric); E66.9 Obesity, unspecified; Z72.89 Other problems related to lifestyle
CPT/HCPCS: 99214; H2012; H2020; S9480; 90837

== ENCOUNTER 2022-06-23 07:46 | Emergency (ER) | payer MEDICAID, SELFPAY ==
[2022-06-23 07:49] VITALS: BP 126/89; PULSE 71; RESP 18; TEMP 36.2; O2SAT 100; BMI 38.7
--- NOTE | 2022-06-23 08:11 | RAD_ITS ---
EXAM: XR ABDOMEN, 2 VIEWS AND XR CHEST, 1 VIEW CLINICAL INDICATION: Pain TECHNIQUE: Frontal view of the chest, frontal view of the abdomen/pelvis and upright or decubitus view of the abdomen. This report was created using [employer] report generation technology. COMPARISON: None. FINDINGS: CHEST: LUNGS AND PLEURAL SPACES: Unremarkable. No consolidation or edema. No pneumothorax. No effusion. HEART: Unremarkable. Cardiac silhouette not enlarged. MEDIASTINUM: Central airways and mediastinal contour are unremarkable. ABDOMEN: INTRAPERITONEAL SPACE: No free air. GASTROINTESTINAL TRACT: Unremarkable. Non-obstructive. No bowel or stomach distention. ORGANS: Unremarkable as visualized. No organomegaly. No abnormal calcifications. TUBES, LINES AND DEVICES: None. BONES/JOINTS: No acute findings. SOFT TISSUES: No acute findings. RAD/Acute Abdomen Inc Chest IMPRESSION: Negative chest and abdominal series. Electronically Signed: Nino Lira MD at 8:37 EDT ,
--- NOTE | 2022-06-23 08:12 | EDS_ITS ---
HPI HPI - GI History of Present Illness Chief Complaint: Abd Pain Narrative Narrative: 32-year-old male past medical history of psychiatric disorder presents with abdominal pain that he has had for at least 1 year. He states it is worse at nighttime when he lays down. When he lays on his side, either side, he states that he can be fine for 5 to 8 minutes, then has to jump up because he feels fullness in his abdomen like my organs are going to burst. He has to get up because he feels pressure sensation in his abdomen. He denies any current fever or chills. No nausea or vomiting. No other exacerbating or alleviating factors. Sometimes it is better when he lays on his back. He has not mentioned this to his primary care physician. He denies any dysuria or hematuria. He presents for evaluation for his longstanding abdominal pain that he has had for a year. [facility] Medical History Acute respiratory failure with hypoxia Alcohol use disorder Anxiety and depression Bipolar 1 disorder, depressed, severe Bipolar disorder Methamphetamine use disorder, mild, in sustained remission Obstructive sleep apnea Pneumonia due to COVID-19 virus PTSD (post-traumatic stress disorder) Social anxiety disorder Home Medications buspirone 10 mg tablet 10 - 20 mg PO BID 08/23/21 [History Last Taken Unknown] apixaban 2.5 mg tablet (Eliquis) 2.5 mg PO BID #28 tabs 08/30/21 [Rx Last Taken Unknown] dexamethasone 6 mg tablet 6 mg PO DAILY #6 tabs 08/30/21 [Rx Last Taken Unknown] guaifenesin 1,200 mg tablet, extended release 12 hr (Mucinex) 1,200 mg PO BID #30 tabs 08/30/21 [Rx Last Taken Unknown] lithium carbonate 300 mg tablet,extended release 1,200 mg PO QHS 30 days #120 tabs 12/14/21 [Rx Last Taken Unknown] gabapentin 300 mg capsule 300 mg PO QHS 30 days #30 caps 01/16/22 [Rx Last Taken Unknown] hydroxyzine pamoate 50 mg capsule (Vistaril) 50 mg PO BID PRN panic attack(s) 30 days #60 caps 01/16/22 [Rx Last Taken Unknown] lamotrigine 100 mg tablet (Lamictal) 100 mg PO DAILY 30 days #30 tabs 01/16/22 [Rx Last Taken Unknown] lurasidone 60 mg tablet (Latuda) 60 mg PO DAILY 30 days #30 tabs 01/16/22 [Rx Last Taken Unknown] trazodone 50 mg tablet 100 mg PO QHS PRN insomnia 01/16/22 [History Last Taken Unknown] Allergy/AdvReac Type Severity Reaction Status Date / Time No Known Allergies Allergy Verified 06/23/22 07:52 Family History (Updated 08/25/21 @ 15:[address] Guera Vicente MD) Mother Mental health disorder Father Mental health disorder Social History (Updated 08/25/21 @ 15:[address] Guera Vicente MD) Smoking Status: Current every day smoker tobacco type: cigarettes and smokeless tobacco substance use type: does not use ROS ROS ED ROS Narrative Constitutional: No fever, no chills. HEENT: No sore throat. No neck pain. No loss of vision. No rhinorrhea. Cardiovascular: No chest pain. No palpitations. No pedal edema. Respiratory: No cough, no shortness of breath. Abdominal: Positive abdominal pressure/abdominal pain. Worse when lying on side. No nausea. No vomiting. Genitourinary: No dysuria. No hematuria. Musculoskeletal: No myalgias. No arthralgias. Neurologic: No headaches. No dizziness. No lightheadedness. Skin: No rash. No change in color. Psychiatric: No depression. No anxiety. EXAM Physical Exam Narrative Exam Narrative: Afebrile. Vital signs noted. HEENT: Normocephalic. Atraumatic. PERRL, EOMI. Neck soft and supple. No point tenderness or step off. Cardiovascular: Regular rate and rhythm. No murmurs, rubs, or gallops appreciated. Respiratory: No tachypnea. Lungs clear to auscultation bilaterally. Gastrointestinal: Abdomen soft, nontender, with normoactive bowel sounds. No rebound or guarding. Neurological: Awake. Alert. Nonfocal, nonlateralizing. Skin: No rash. Normal color. No pallor. Musculoskeletal: No pedal edema. Full range of motion extremities. Const Vital Signs: 06/23/22 07:49 Temperature 97.2 F L Temperature Source Temporal Pulse Rate 71 Respiratory Rate 18 Blood Pressure 126/89 H Blood Pressure Mean 101 Pulse Ox 100 Oxygen Delivery Method Room Air MDM MDM MDM Narrative Medical decision making narrative: Medical screening labs were obtained including CBC, CMP, and lipase. I will obtain x-rays of his abdomen. His CBC is grossly normal with a normal white count of 8.7, hemoglobin normal at 16.1, normal platelet count of 225. Electrolyte panel shows chloride elevated at 111, otherwise unremarkable with a normal BUN and normal creatinine. Glucose of 95, LFTs are grossly unremarkable except for slightly elevated alk phos of 130 which I think is nonspecific. X- rays of the abdomen including chest x-ray interpreted by myself shows no evidence of acute process, no obstruction. Urinalysis is negative for infection. He did have lithium listed as one of his home meds, so I obtained a lithium level, but there is no evidence of toxicity of lithium. At this point in time, I feel he be discharged safely home with follow-up to his primary care provider for possible referral to gastroenterology as needed. Additionally, his abdominal pain is chronic and states he has been having it for over a year. Return instructions to the emergency department were reviewed. Disposition is discharged home in stable condition. Lab Data Attestation: I reviewed the patient's lab results. Labs: Laboratory Results - last 24 hr 06/23/22 06/23/22 06/23/22 08:04 08:04 08:04 WBC 8.7 RBC 5.12 Hgb 16.1 Hct 45.9 MCV 89.6 MCH 31.4 MCHC 35.1 RDW Std Deviation 42.3 RDW Coeff of Joanna 12.9 Plt Count 225 MPV 9.4 Immature Gran % (Auto) 0.200 Neut % (Auto) 52.4 Lymph % (Auto) 32.9 Hall % (Auto) 11.1 H Eos % (Auto) 2.8 Baso % (Auto) 0.6 Absolute Neuts (auto) 4.6 Absolute Lymphs (auto) 2.85 Nucleated RBC % 0 Sodium 141 Potassium 3.6 Chloride 111 H Carbon Dioxide 24.0 Anion Gap 6 BUN 8 Creatinine 1.12 Estim Creat Clear Calc 86.24 Est GFR (MDRD) Af Amer 98 Est GFR (MDRD) Non-Af 81 BUN/Creatinine Ratio 7.1 L Glucose 95 Calcium 8.7 Total Bilirubin 0.60 AST 15 ALT 37 Alkaline Phosphatase 130 H Total Protein 7.3 Albumin 3.6 Globulin 3.7 Albumin/Globulin Ratio 1.0 Lipase 172 Urine Color Urine Clarity Urine pH Ur Specific [place] Urine Protein Urine Glucose (UA) Urine Ketones Urine Occult Blood Urine Nitrite Urine Bilirubin Urine Urobilinogen Ur Leukocyte Esterase [place] < 0.20 L 06/23/22 08:40 WBC RBC Hgb Hct MCV MCH MCHC RDW Std Deviation RDW Coeff of Joanna Plt Count MPV Immature Gran % (Auto) Neut % (Auto) Lymph % (Auto) Hall % (Auto) Eos % (Auto) Baso % (Auto) Absolute Neuts (auto) Absolute Lymphs (auto) Nucleated RBC % Sodium Potassium Chloride Carbon Dioxide Anion Gap BUN Creatinine Estim Creat Clear Calc Est GFR (MDRD) Af Amer Est GFR (MDRD) Non-Af BUN/Creatinine Ratio Glucose Calcium Total Bilirubin AST ALT Alkaline Phosphatase Total Protein Albumin Globulin Albumin/Globulin Ratio Lipase Urine Color Yellow Urine Clarity Clear Urine pH 6.0 Ur Specific [place] 1.010 Urine Protein Negative Urine Glucose (UA) Normal Urine Ketones Negative Urine Occult Blood Negative Urine Nitrite Negative Urine Bilirubin Negative Urine Urobilinogen Normal Ur Leukocyte Esterase Negative [place] Radi[facility] Diagnostic Testing: Clinical Impression(s) from Imaging Studies Acute Abdomen Series 06/23/22 08:11 IMPRESSION: Negative chest and abdominal series. Electronically Signed: Nino Lira MD at 8:37 EDT , Discharge Plan Triage Chief Complaint: Abd Pain ED Provider: Nino Albrecht Dx/Rx/DC Orders Clinical Impression: Abdominal pain, Abdominal fullness Instructions: ED Abdominal Pain Unkn Cause Male... Prescriptions: No Action buspirone 10 mg tablet 10 - 20 mg PO BID Mucinex 1,200 mg tablet extended release 12hr 1,200 mg PO BID Qty: 30 0RF Eliquis 2.5 mg tablet 2.5 mg PO BID Qty: 28 0RF dexamethasone 6 mg tablet 6 mg PO DAILY Qty: 6 0RF lithium carbonate 300 mg tablet extended release 1,200 mg PO QHS 30 Days Qty: 120 1RF lamotrigine [Lamictal] 100 mg tablet 100 mg PO DAILY 30 Days Qty: 30 1RF Rx Instructions: Take 1 po q hs Latuda 60 mg tablet 60 mg PO DAILY 30 Days Qty: 30 1RF Rx Instructions: must administer with food (at least 350 calories) hydroxyzine pamoate [Vistaril] 50 mg capsule 50 mg PO BID PRN (Reason: panic attack(s)) 30 Days Qty: 60 1RF Rx Instructions: Only as needed for panic attacks. gabapentin 300 mg capsule 300 mg PO QHS 30 Days Qty: 30 1RF trazodone 50 mg tablet 100 mg PO QHS PRN (Reason: insomnia) Primary Care Provider: Malaika Em NP Referrals: Malaika Em DIVISION ORDER TECHNICIAN, DIVISION ORDER TECHNICIAN-C [Primary Care Provider] - As soon as possible Disposition Disposition: Home, Self Care
[2022-06-23 08:23] LABS: Absolute Lymphocyte Count 2.85 X10^3/uL (0.83-4.51); Absolute Neutrophil Count 4.6 X10^3/uL (2.0-7.7); Basophil# 0.05 X10^3/uL; Basophil% 0.6 % (0-1); Eosinophil# 0.24 X10^3/uL; Eosinophils% 2.8 % (0-5); Hematocrit 45.9 % (40-54); Hemoglobin 16.1 g/dL (13.0-16.5); Lymphocyte # 2.85 X10^3/ul (0.83-4.51); Lymphocyte % 32.9 % (19-41); Mean Corp Hgb Conc 35.1 g/dL (32-36); Mean Corpuscular Hgb 31.4 pg (27.0-32.0); Mean Corpuscular Volume 89.6 fL (80-94); Mean Platelet Vol. 9.4 fl (6.2-12.0); Monocyte# 0.96 X10^3/uL; Monocyte% 11.1 % (0-10); NRBC Flagged by Analyzer 0 % (0-5); Neutrophil # 4.55 X10^3/uL (2.7-7.7); Neutrophil % 52.4 % (47-70); Platelet Count 225 K/mm3 (150-450); RBC Distribution Width CV 12.9 % (11.6-14.6); RBC Distribution Width SD 42.3 fl (35.1-43.9); Red Blood Count 5.12 M/mm3 (4.6-6.2); White Blood Count 8.7 K/mm3 (4.4-11.0)
[2022-06-23 08:38] LABS: AST(SGOT) 15 U/L (15-37); Alanine Aminotransfer ALT/SGPT 37 U/L (16-61); Albumin, Serum 3.6 g/dL (3.2-5.0); Alkaline Phosphatase 130 U/L (45-117); Anion Gap 6 (5-15); BUN 8 mg/dL (7-18); BUN/Creat Ratio 7.1 RATIO (10-20); Calcium,Total 8.7 mg/dL (8.5-10.1); Chloride 111 mmol/L (98-107); Creatinine, Serum 1.12 mg/dL (0.70-1.30); EST Glomerular Filtration Rate 81 mL/min (>60); Est Glom Filt Rate - Afr Amer 98 mL/min (>60); Estimated Creatinine Clearance 86.24 ml/min; Globulin 3.7 g/dL (2.2-4.2); Glucose 95 mg/dL (74-106); Lipase 172 U/L (73-393); Potassium 3.6 mmol/L (3.5-5.1); Protein, Total 7.3 g/dL (6.4-8.2); Sodium Level 141 mmol/L (136-145)
[2022-06-23 08:42] LABS: Lithium < 0.20 mmol/L (0.60-1.20)
[2022-06-23 08:50] LABS: Bacteria 0 SEEN /hpf (None Seen); Mucous, Urine 0 SEEN /hpf (<or=2+); Red Blood Cells-Urine 0 SEEN /hpf (0-5); Squamous Epithelial Cells - UA 0 SEEN /hpf (0-5); White Blood Cells 0 SEEN /hpf (0-5)
[2022-06-23 08:56] LABS: Color, Urine Yellow (Yellow); Glucose, Dipstick Normal (Normal); Ketone-Dipstick Negative (Negative); Leukocyte Esterase-Dipstick Negative /ul (Negative); Nitrite-Dipstick Negative (Negative); Occult Blood-Urine Negative /ul (Negative); Protein-Dipstick Negative (Negative); Urine Bilirubin Dipstick Negative (Negative); Urine Clarity Clear (Clear); Urine Urobilinogen Normal (Normal)
== END 2022-06-23 09:11 | disposition home or self-care (01) ==
PROVIDERS: Emergency Provider Emergency Medicine; PCP Nurse Practitioner; Visit Provider Emergency Medicine
DX: R10.9 Unspecified abdominal pain (principal); G89.29 Other chronic pain; F17.210 Nicotine dependence, cigarettes, uncomplicated; F17.220 Nicotine dependence, chewing tobacco, uncomplicated
CPT/HCPCS: 74022; 80053; 80178; 81001; 83690; 85025; 99285

== ENCOUNTER 2022-11-13 16:06 | Emergency (ER) | payer MEDICAID, SELFPAY ==
[2022-11-13 16:07] VITALS: BP 118/104; PULSE 109; RESP 18; TEMP 36.9; O2SAT 94; BMI 39.2
[2022-11-13 16:10] VITALS: BP 116/101
--- NOTE | 2022-11-13 16:20 | EKG12_ITS ---
Test Reason : SI Blood Pressure : / mmHG Vent. Rate : 096 BPM Atrial Rate : 096 BPM P-R Int : 198 ms QRS Dur : 096 ms QT Int : 342 ms P-R-T Axes : 018 -10 011 degrees QTc Int : 432 ms Normal sinus rhythm Normal ECG Confirmed by NAVEEN MUNGUIA, KONRAD ([id number]), index editor DENISE TORRES ([id number]) on 11/18/2022 9:25:51 AM Referred By: Confirmed By:HAKEEM HODGE MD
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
[2022-11-13] MEDS: Acetaminophen 325 MG Tablet 650 MG PO ×2 (16:57→23:37)
[2022-11-13 17:00] LABS: Absolute Lymphocyte Count 2.15 X10^3/uL (0.83-4.51); Absolute Neutrophil Count 6.7 X10^3/uL (2.0-7.7); Basophil# 0.03 X10^3/uL; Basophil% 0.3 % (0-1); Eosinophil# 0.15 X10^3/uL; Eosinophils% 1.5 % (0-5); Hematocrit 48.8 % (40-54); Hemoglobin 16.3 g/dL (13.0-16.5); Lymphocyte # 2.15 X10^3/ul (0.83-4.51); Lymphocyte % 21.5 % (19-41); Mean Corp Hgb Conc 33.4 g/dL (32-36); Mean Corpuscular Volume 89.7 fL (80-94); Monocyte# 0.92 X10^3/uL; Monocyte% 9.2 % (0-10); NRBC Flagged by Analyzer 0 % (0-5); Neutrophil # 6.71 X10^3/uL (2.7-7.7); Neutrophil % 67.1 % (47-70); Platelet Count 227 K/mm3 (150-450); RBC Distribution Width CV 12.6 % (11.6-14.6); RBC Distribution Width SD 41.2 fl (35.1-43.9); Red Blood Count 5.44 M/mm3 (4.6-6.2)
[2022-11-13 17:12] LABS: Alcohol, Blood (Medical)-Serum < 3.0 mg/dL
[2022-11-13 17:16] LABS: ALB/GLOB Ratio 1.1 RATIO (0.9-2.4); AST(SGOT) 19 U/L (15-37); Alanine Aminotransfer ALT/SGPT 49 U/L (16-61); Albumin, Serum 4.1 g/dL (3.2-5.0); Alkaline Phosphatase 113 U/L (45-117); Anion Gap 9 (5-15); BUN 17 mg/dL (7-18); BUN/Creat Ratio 13.3 RATIO (10-20); Calcium,Total 9.5 mg/dL (8.5-10.1); Chloride 105 mmol/L (98-107); Creatinine, Serum 1.28 mg/dL (0.70-1.30); EST Glomerular Filtration Rate 69 mL/min (>60); Est Glom Filt Rate - Afr Amer 84 mL/min (>60); Estimated Creatinine Clearance 75.46 ml/min; Globulin 3.9 g/dL (2.2-4.2); Glucose 100 mg/dL (74-106); Potassium 3.9 mmol/L (3.5-5.1); Sodium Level 137 mmol/L (136-145)
[2022-11-13 17:35] VITALS: RESP 16
[2022-11-13 17:42] LABS: Amphetamine Urine VISTA NEGATIVE (<1000 ng/mL); Barbiturate Urine VISTA NEGATIVE (< 200 ng/mL); Benzodiazepine Urine VISTA NEGATIVE (< 200 ng/mL); Cocaine Urine VISTA NEGATIVE (< 300 ng/mL); Ecstacy Urine VISTA NEGATIVE (< 500 ng/mL); Methadone Urine VISTA NEGATIVE (< 300 ng/mL); PCP Urine VISTA NEGATIVE (< 25 ng/mL); THC Urine VISTA NEGATIVE (< 50 ng/mL); Vista UDS pH Range 5
[2022-11-13 18:05] VITALS: RESP 16
--- NOTE | 2022-11-13 18:24 | NURSING ---
CALLED [facility]. TO FAX CHART
--- NOTE | 2022-11-13 18:28 | NURSING ---
FAXED CHART TO [facility] [phone]
[2022-11-13 19:02] VITALS: RESP 16
--- NOTE | 2022-11-13 22:08 | NURSING ---
REFERRED TO [facility] [place] [facility]
[2022-11-13 22:53] VITALS: BP 149/89; PULSE 81; RESP 16; O2SAT 98
[2022-11-14 04:46] VITALS: RESP 16
[2022-11-14] MEDS: Lithium Carbonate 300mg Capsule 900 MG PO (04:48)
[2022-11-14] MEDS: traZODone 100 MG Tablet PO (04:48)
[2022-11-14] MEDS: Gabapentin 300 MG Capsule PO (06:36)
[2022-11-14 06:39] VITALS: BP 111/70; PULSE 93; RESP 16; O2SAT 96
== END 2022-11-14 08:20 ==
PROVIDERS: Emergency Provider Emergency Medicine; Visit Provider Emergency Medicine
DX: R45.851 Suicidal ideations (principal); F41.9 Anxiety disorder, unspecified; F17.210 Nicotine dependence, cigarettes, uncomplicated; F17.220 Nicotine dependence, chewing tobacco, uncomplicated; G47.00 Insomnia, unspecified; F32.A Depression, unspecified; Z79.899 Other long term (current) drug therapy; Z20.822 Contact with and (suspected) exposure to COVID-19
CPT/HCPCS: 80053; 80307; 82077; 85025; 87811; 93005; 99284

== ENCOUNTER → 2023-04-10 | Outpatient (CLI) | payer MEDICAID, SELFPAY ==
[2023-04-10 18:10] LABS: Absolute Neutrophil Count 6.1 X10^3/uL (2.0-7.7); Basophil# 0.03 X10^3/uL; Basophil% 0.3 % (0-1); Eosinophil# 0.15 X10^3/uL; Eosinophils% 1.5 % (0-5); Lymphocyte % 28.3 % (19-41); Mean Corp Hgb Conc 34.9 g/dL (32-36); Mean Corpuscular Hgb 30.5 pg (27.0-32.0); Mean Corpuscular Volume 87.4 fL (80-94); Mean Platelet Vol. 9.9 fl (6.2-12.0); Monocyte# 0.83 X10^3/uL; Monocyte% 8.4 % (0-10); NRBC Flagged by Analyzer 0 % (0-5); Neutrophil # 6.05 X10^3/uL (2.7-7.7); Neutrophil % 61.1 % (47-70); Platelet Count 208 K/mm3 (150-450); RBC Distribution Width CV 12.6 % (11.6-14.6); Red Blood Count 4.92 M/mm3 (4.6-6.2); White Blood Count 9.9 K/mm3 (4.4-11.0)
[2023-04-10 18:41] LABS: Hemoglobin A1c 4.9 % (3.8-5.6); Vitamin B12 227 pg/mL (211-911)
[2023-04-10 18:59] LABS: ALB/GLOB Ratio 0.9 RATIO (0.9-2.4); AST(SGOT) 29 U/L (15-37); Alanine Aminotransfer ALT/SGPT 58 U/L (16-61); Albumin, Serum 3.4 g/dL (3.2-5.0); Alkaline Phosphatase 122 U/L (45-117); Anion Gap 7 (5-15); BUN 12 mg/dL (7-18); BUN/Creat Ratio 10.8 RATIO (10-20); Calcium,Total 8.6 mg/dL (8.5-10.1); Chloride 107 mmol/L (98-107); Creatinine, Serum 1.11 mg/dL (0.70-1.30); EST Glomerular Filtration Rate 82 mL/min (>60); Est Glom Filt Rate - Afr Amer 99 mL/min (>60); Globulin 3.8 g/dL (2.2-4.2); Glucose 96 mg/dL (74-106); Potassium 3.9 mmol/L (3.5-5.1); Protein, Total 7.2 g/dL (6.4-8.2); Sodium Level 137 mmol/L (136-145); Thyroid Stim Hormone (TSH) 0.92 uIU/mL (0.358-3.74)
== END | disposition home or self-care (01) ==
LOC: MFPLAB 14:48
PROVIDERS: PCP Family Medicine; Visit Provider Family Medicine
DX: R53.83 Other fatigue (principal)
CPT/HCPCS: 36415; 80053; 82607; 83036; 84443; 85025